=== PATIENT | male | born 1970 | race Caucasian/White ===

== ENCOUNTER → 2019-12-27 08:16 | Outpatient (CLI) | payer MEDICARE, OTHER, SELFPAY ==
--- NOTE | 2019-12-27 | DI.MRI.S_ITS ---
PROCEDURE: MR HEAD/BRAIN WO/W CON INDICATIONS: Disorientation, unspecified TECHNIQUE: Noncontrast axial T1 spin echo, axial T2 fast spin echo, sagittal and axial FLAIR, coronal T2 fast spin echo, axial gradient echo, axial diffusion and ADC through the brain. After the administration of contrast, axial and coronal T1 spin echo with fat saturation through the brain. COMPARISON: None. FINDINGS: Image quality: Excellent. CSF spaces: Basal cisterns are patent. No extra-axial fluid collections. Ventricles are normal in size and shape. Brain: No midline shift. No intracranial bleeds or masses. No abnormal intracranial enhancement. There is cerebral volume loss for age. There is periventricular white matter chronic small vessel ischemic change. The brainstem appears normal. Diffusion-weighted images demonstrate no acute ischemic insults. No chronic ischemic insults. Normal intravascular flow voids are present. Skull and face: Calvarial marrow is normal in signal. Orbits appear normal. Sinuses: Sinuses and mastoids appear clear. IMPRESSION: No evidence of acute ischemia. No acute intracranial signal abnormality or enhancement. Dictated by: Bernard Delgado M.D. on 12/27/2019 at 9:35 Approved by: Bernard Delgdao M.D. on 12/27/2019 at 9:41
== END ==
PROVIDERS: PCP Family Medicine; Referring Provider Family Medicine; Visit Provider Family Medicine
DX: R41.0 Disorientation, unspecified (principal)
CPT/HCPCS: 70553

== ENCOUNTER → 2022-02-11 13:00 | Outpatient (CLI) | payer MEDICARE, OTHER, SELFPAY ==
--- NOTE | 2022-02-11 13:04 | DI.US.S_ITS ---
PROCEDURE: US THYROID INDICATIONS: HYPOTHYROIDISM TECHNIQUE: Real-time scanning was performed of the thyroid gland, with image documentation. COMPARISON: Outside Film, CT, CT CHEST WITH CONTRAST, 05/01/2021, 12:26. FINDINGS: Right: Thyroid lobe measures 3.9 x 1 x 1.1 cm. Left: Thyroid lobe measures 3.8 x 1.4 x 1.3 cm. Isthmus: 4 mm thick. The thyroid is diffusely heterogeneous, without focal nodules. IMPRESSION: Normal sized thyroid, with diffuse heterogeneity. No focal thyroid nodules are seen. ACR TI-RADS definitions and recommendations: TI-RADS 1 (benign): 0 points. FNA not needed. TI-RADS 2 (not suspicious): 2 points. FNA not needed. TI-RADS 3 (mildly suspicious): 3 points. * FNA if 2.5 cm or larger, follow up if 1.5 cm or larger (at 1, 3, and 5 years). TI-RADS 4 (moderately suspicious): 4-6 points. * FNA if 1.5 cm or larger, follow up if 1 cm or larger (at 1, 2, 3, and 5 years). TI-RADS 5 (highly suspicious): 7 points or more. * FNA if 1 cm or larger, follow up if 0.5 cm or larger (every year for 5 years). Dictated by: Beck Gutiérrez M.D. on 02/11/2022 at 13:27 Approved by: Beck Gutiérrez M.D. on 02/11/2022 at 13:28
== END ==
PROVIDERS: PCP Family Medicine; Referring Provider Family Medicine; Visit Provider Family Medicine
DX: E03.9 Hypothyroidism, unspecified (principal)
CPT/HCPCS: 76536

== ENCOUNTER → 2022-05-27 10:29 | Outpatient (CLI) | payer MEDICARE, OTHER, SELFPAY ==
--- NOTE | 2022-05-27 | DI.CT.S_ITS ---
PROCEDURE: CT CHEST W CON INDICATIONS: Other diseases of mediastinum TECHNIQUE: After the administration of intravenous contrast, 5 mm thick sections acquired from the pulmonary apices to the posterior costophrenic angles. 1 mm axial lung, 5 mm thick coronal and sagittal reformats and 7 mm axial MIP were acquired. For radiation dose reduction, the following was used: automated exposure control, adjustment of mA and/or kV according to patient size. COMPARISON: Outside Film, CT, CT CHEST WITH CONTRAST, 05/01/2021, 12:26. Outside Film, CT, CT ABDOMEN PELVIS WITH CONTRAST, 04/15/2019, 10:27. [facility], RG, CT THORAX WITH CONTRAST, 05/01/2021, 12:26. FINDINGS: Image quality: Excellent. Lungs and pleura: No acute air space opacities. No pleural effusions or pneumothorax. Central and peripheral airways are patent and normal in caliber. Mediastinum: Heart size is normal. No pericardial effusion. 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 This cyst measured 3.9 x 6.[address] dated April 15, 2019. The superior aspect of the cyst tracks along the aortic root into the posterior upper right mediastinum, as before. No mediastinal or hilar adenopathy by size criteria. Thoracic aorta and central pulmonary arteries are normal in size. Esophagus is normal in caliber. There is a large hiatal hernia. Bones and chest wall: No suspicious bony lesions. No vertebral body compression fractures. No axillary or supraclavicular adenopathy by size criteria. Thyroid gland is unremarkable. An old compression deformity is redemonstrated at T12 unchanged from 2019. Abdomen: Visualized upper abdominal solid organs appear normal. Upper abdominal bowel loops are normal in caliber. IMPRESSION: 1. Right pericardial cyst slightly increased in size when compared with prior studies. No acute pulmonary findings. Dictated by: Erika Bloom M.D. on 06/08/2022 at 16:18 Approved by: Erika Bloom M.D. on 06/08/2022 at 16:23
== END ==
PROVIDERS: PCP Family Medicine; Referring Provider Thoracic Surgery (Cardiothoracic Vascular Surgery); Visit Provider Thoracic Surgery (Cardiothoracic Vascular Surgery)
DX: I31.8 Other specified diseases of pericardium (principal); J98.59 Other diseases of mediastinum, not elsewhere classified; K44.9 Diaphragmatic hernia without obstruction or gangrene
CPT/HCPCS: 71260

== ENCOUNTER 2022-08-17 12:54 | Inpatient (IN) | payer MEDICARE, OTHER, SELFPAY ==
[2022-08-17] VITALS (59 sets, daily range): BP systolic 113–187; BP diastolic 62–148; PULSE 92–137; RESP 10–46; TEMP 32–37.2; O2SAT 92–99; BMI 38.9
--- NOTE | 2022-08-17 | DI.ECHO.S_ITS ---
[facility]---------+ [facility] +---------+ : : [address] : : : : [id number] : : : : Phone: [phone]+ Echocardiogram Report + + :Name: NORBERTO CHRISTIANSEN Study Date: 08/17/2022 Height: 71 in : :[facility] ReadingLocation: Weight: 288 lb : : Gender: Male BSA: 2.5 m2 : :: 1970 Age: 51 yrs BP: 125/80 mmHg: :Reason For Study: ASSESS LV FUNCTION, PERICARDIAL EFFUSION : :Ordering Physician: CORINE SORIA : :Dodie Sanabria Performed By: Michaela Davenport : :Referring: CORINE SORIA D.O. : + + Interpretation Summary The left ventricle is normal in size. Left ventricular systolic function is normal. The ejection fraction is estimated to be 65-70%. There are no obvious focal wall motion abnormalities noted but poor endocardial definition reduces the sensitivity for the detection of such. Diastolic function could not be accurately assessed due to atrial fibrillation. The right ventricle is normal size. Right ventricular systolic function is at the lower limits of normal. Right ventricular systolic pressure is estimated to be 25 mmHg plus the clinically estimated CVP which cannot be estimated on this exam. The left atrial size is normal. Right atrial size is normal. There is no significant valvular heart disease. The aortic root is normal size. Procedure: A two-dimensional transthoracic echocardiogram with color flow and Doppler was performed. Most of the acoustic windows were suboptimal, but the best imaging was obtained from the apical window. There is no prior echocardiogram noted for this patient. A contrast injection of Definity was performed to improve assessment of LV function. The patient was in atrial fibrillation with heart rates between 99-125 bpm during the exam. Left Ventricle: The left ventricle is normal in size. Left ventricular wall thickness is mildly increased. Left ventricular systolic function is normal. The ejection fraction is estimated to be 65-70%. There are no obvious focal wall motion abnormalities noted but poor endocardial definition reduces the sensitivity for the detection of such. Diastolic function could not be accurately assessed due to atrial fibrillation. Right Ventricle: The right ventricle is normal size. Right ventricular systolic function is at the lower limits of normal. Atria: The left atrial size is normal. Right atrial size is normal. There is no Doppler evidence for an interatrial shunt. Mitral Valve: The mitral valve is normal in structure and function. There is trace mitral regurgitation. Aortic Valve: The aortic valve is slightly calcified. The aortic valve is not well visualized. There is no aortic valve stenosis. No aortic regurgitation is present. Tricuspid Valve: The tricuspid valve is not well visualized, but is grossly normal. There is mild tricuspid regurgitation. Right ventricular systolic pressure is estimated to be 25 mmHg plus the clinically estimated CVP which cannot be estimated on this exam. Pulmonic Valve: The pulmonic valve is not well visualized. There is no pulmonic valvular regurgitation. There is no significant valvular heart disease. Great Vessels: The aortic root is normal size. The dimensions of the ascending aorta are normal. Patient on Bipap with normal sized IVC without collapse. Pericardium/ Pleura There is no pericardial effusion. There is no pleural effusion. MMode/2D Measurements & Calculations LVIDd: 4.3 cm LVOT diam: 2.4 cm LVIDs: 2.8 cm Ao root diam: 3.2 cm FS: 34.1 % asc Aorta Diam: 3.1 cm IVSd: 1.2 cm Ao Arch Diam (Prox Trans): 2.7 cm LVPWd: 1.4 cm LV mcmanus. diameter/BSA (cm/m^2): 1.8 LV sys. diameter/BSA (cm/m^2): 1.2 LA A2 area: 18.7 cm2 RA long axis: 5.1 cm LA A4 area: 23.5 cm2 RA area: 17.6 cm2 LA length (vol): 7.0 cm RA vol: 51.6 ml LA vol: 53.0 ml RA : 21.0 ml/m2 LA vol index: 21.5 ml/m2 IVC diam: 1.7 cm RVD1 (basal): 3.7 cm RVD2 (mid): 2.7 cm TAPSE: 1.5 cm Doppler Measurements & Calculations Ao V2 max: 148.3 cm/sec LVOT Max Robbie: 144.6 cm/sec Ao V2 mean: 103.1 cm/sec LV V1 max P.4 mmHg Ao max P.9 mmHg LV V1 VTI: 20.9 cm Ao mean P.9 mmHg VALERIA(I,D): 3.9 cm2 Ao V2 VTI: 23.5 cm VALERIA(V,D): 4.3 cm2 sev ratio: 0.89 VALERIA indexed to BSA (cm^2/m^2): 1.6 MV E max robbie: 72.9 cm/sec TR max robbie: 252.0 cm/sec MV A max robbie: 1.0 cm/sec TR max P.4 mmHg MV E/A: 70.5 PA pr(Accel): 37.9 mmHg Med Peak E' Robbie: 5.0 cm/sec E/E' med: 14.6 Lat Peak E' Robbie: 7.9 cm/sec E/E' lat: 9.2 E/e' average: 11.9 MV dec time: 0.15 sec SV(LVOT): 92.3 ml Reading Physician:05:49 PM
--- NOTE | 2022-08-17 12:58 | DI.RAD.S_ITS ---
PROCEDURE: XR CHEST 1V INDICATIONS: chest pain TECHNIQUE: One view of the chest was acquired. COMPARISON: [facility], CR, XR CHEST 2 VIEWS, 08/11/2022, 13:43. FINDINGS: Surgical changes and devices: None. Lungs and pleura: Moderate right basilar patchy airspace opacity. No pleural effusions or pneumothorax. Mediastinum: Mediastinal contours appear normal. Heart size is normal. Bones and chest wall: No suspicious bony lesions. Overlying soft tissues appear unremarkable. IMPRESSION: Right basilar atelectasis versus pneumonia Dictated by: Chaparrita Martinez M.D. on 08/17/2022 at 13:24 Approved by: Chaparrita Martinez M.D. on 08/17/2022 at 13:24
--- NOTE | 2022-08-17 13:06 | ED.SOB ---
HPI - SOB/Dyspnea General Chief Complaint: Chest Pain Stated Complaint: SOB, new afib, s/p pericardial cyst removal 08/12 Time Seen by Provider: 08/17/22 13:00 History of Present Illness HPI Narrative: Patient is a 51-year-old male history of mediastinal/large pericardial cyst removed on 08/08/2022 at [facility]. Also history includes hyperlipidemia, morbid obesity, ice sleep apnea. Presents today with increasing shortness of breath. He is found to be in AFib with RVR along with tachypneic and moderate respiratory distress unable to provide significant history. He denies any fever or chills. He is having some chest discomfort as well. Related Data Home Medications Medication Instructions Recorded Confirmed Saccharomyces boulardii 250 mg 250 mg PO TID 08/17/22 08/17/22 capsule aspirin 81 mg capsule 81 mg PO DAILY 08/17/22 08/17/22 calcium citrate 200 mg (950 mg) 200 mg PO DAILY 08/17/22 08/17/22 tablet digestive enzymes 1 tab PO DAILY 08/17/22 08/17/22 diphenoxylate-atropine 2.5 1 tab PO TID 08/17/22 08/17/22 mg-0.025 mg tablet (Lomotil) esomeprazole magnesium 40 mg 40 mg PO DAILY 08/17/22 08/17/22 capsule,delayed release (Nexium) gabapentin 100 mg capsule 100 mg PO TID 08/17/22 08/17/22 glutamine 500 mg capsule 500 mg PO QID PRN Pain (Scale 08/17/22 08/17/22 Score 1-3) levothyroxine 125 mcg tablet 125 mcg PO DAILY 08/17/22 08/17/22 (Synthroid) loratadine 10 mg disintegrating 10 mg PO DAILY PRN Allergy Symptoms 08/17/22 08/17/22 tablet (Allergy Relief (loratadine)) metoprolol succinate 50 mg 50 mg PO BID 08/17/22 08/17/22 tablet,extended release 24 hr omeprazole 40 mg capsule,delayed 40 mg PO DAILY 08/17/22 08/17/22 release fylqtxnzshvt-otserkckshzit-sriuetf 5 ml PO Q4-6H PRN Pain (Scale 08/17/22 08/17/22 6.25 mg-5 mg-10 mg/5 mL oral syrup Score 1-3) (Promethazine VC-Codeine) rosuvastatin 20 mg tablet (Crestor) 20 mg PO DAILY 08/17/22 rosuvastatin 40 mg tablet 40 mg PO DAILY 08/17/22 08/17/22 tramadol 50 mg tablet 50 mg PO BID PRN Pain (Scale Score 08/17/22 08/17/22 1-3) Allergies Allergy/AdvReac Type Severity Reaction Status Date / Time lorazepam [From Ativan] Allergy Severe Anaphylaxis Verified 08/17/22 15:14 morphine Allergy Severe Anaphylaxis Verified 08/17/22 15:14 Review of Systems Review of Systems Narrative: GENERAL: Denies chills, fatigue, malaise, fever, sweats, travel HEENT: Denies sinus pain, ear pain, sore throat, difficulty swallowing, neck pain RESPIRATORY: See HPI CARDIOVASCULAR: Denies chest pain, palpitations, orthopnea, edema GASTROINTESTINAL: Denies nausea, vomiting, abdominal pain, diarrhea, constipation, melena. : Denies dysuria, frequency, incontinence, hematuria, urinary retention, flank pain. MUSCULOSKELETAL: Denies weakness, joint pain, or bony pain SKIN: No rash, no erythema, no pruritus NEUROLOGIC: Denies weakness, dizziness, headache, numbness, change in speech, confusion PSYCHIATRIC: No concerning psychosocial issues. 12 point review of systems is negative except for those stated above and HPI Exam Initial Vital Signs Initial Vital Signs: Vital Signs Pulse Rate 114 H 08/17/22 12:59 Respiratory Rate 29 H 08/17/22 12:59 Pulse Oximetry 98 08/17/22 12:59 GENERAL: Alert 51-year-old male appears in moderate to severe respiratory distress HEENT: Head atraumatic,EOMI, pupils reactive, face symmetric, [moist] mucous membranes CARDIOVASCULAR: Irregular tachycardic no murmurs or rubs appreciated. RESPIRATORY: Breath sounds equal bilaterally, no wheezes rales or rhonchi. ABDOMEN: Soft, nontender. Normoactive bowel sounds all 4 quadrants. No guarding or rebound. EXTREMITIES: Normal range of motion, no clubbing or edema. Neurovascularly intact NEUROLOGICAL: Alert and oriented x4. Moving all extremities SKIN: Mottled skin appearance on abdomen but no other extremities Course Orders Ordered: ED Orders 08/17/22 12:58 XR chest 1V Stat EKG-12 Lead Stat 08/17/22 13:00 BNP [NT-proBNP (BNP-Adult 18+)] Stat COVID19 -Nasal RAPID/Pre-Proc Stat Complete Blood Count AUTO DIFF Stat Comprehensive Metabolic Panel Stat Lactate (Lactic Acid) Stat Lipase Stat Magnesium Stat Troponin & CK Cardiac Panel Stat 08/17/22 13:13 CT angio chest abdomen pelvis Stat 08/17/22 13:18 Urinalysis and Microscopic Stat Acetaminophen (Acetaminophen 325 Mg Tablet) 650 mg PO Q6H PRN PRN Reason: Fever/Mild Pain (1-3) Aspirin (Aspirin Ec 81 Mg Tablet) 81 mg PO DAILY LESLY Chlorthalidone (Chlorthalidone 25 Mg Tablet) 25 mg PO DAILY LESLY Enoxaparin Sodium (Enoxaparin 40 Mg/0.4 Ml Syringe) 40 mg SUBCUT DAILY LESLY Furosemide (Furosemide 40 Mg/4 Ml Vial) 40 mg IV DAILY LESLY Gabapentin (Gabapentin 100 Mg Capsule) 100 mg PO TID LESLY DILTIAZEM (Diltiazem 125 Mg/125 Ml-D5w) 125 mg in 125 mls @ 5 mls/hr IV TITRATE LESLY; Protocol Last Admin: 08/17/22 16:24 Dose: 10 mg/hr, 10 mls/hr Documented By: MAYA Levothyroxine Sodium (Levothyroxine 125 Mcg Tablet) 125 mcg PO DAILY@0600 [facility] Melatonin (Melatonin 3 Mg Tablet) 6 mg PO BEDTIME PRN PRN Reason: Insomnia Naloxone HCl (Naloxone 0.4 Mg/Ml Vial) 0.2 mg IV Q2MIN PRN PRN Reason: Opiate Reversal Pantoprazole Sodium (Pantoprazole Dr 40 Mg Tablet) 40 mg PO 0700 [facility] Polyethylene Glycol (Polyethylene Glycol 3350 17 Gm Powd.Pack) 17 gm PO DAILY PRN PRN Reason: Constipation Sennosides (Sennosides 8.6 Mg Tablet) 8.6 mg PO BID PRN PRN Reason: Constipation Tramadol HCl (Tramadol 50 Mg Tablet) 100 mg PO DAILY PRN PRN Reason: Pain, Moderate (4-6) Discontinued Medications Diltiazem HCl (Diltiazem 5 Mg/Ml Sdv) 10 mg IV NOW ONE Stop: 08/17/22 14:19 Last Admin: 08/17/22 14:27 Dose: 10 mg Documented By: HA Furosemide (Furosemide 40 Mg/4 Ml Vial) 40 mg IV NOW ONE Stop: 08/17/22 13:01 Last Admin: 08/17/22 13:12 Dose: 40 mg Documented By: RB Vital Signs Vital signs: Vital Signs - 8 hr 08/17/22 13:20 08/17/22 12:59 08/17/22 13:00 Temperature 98.9 F Pulse Rate 120 H 114 H 118 H Respiratory Rate 30 H 29 H 40 H Blood Pressure 165/98 H Pulse Oximetry 95 98 95 Oxygen Delivery Method Room Air Fraction of Inspired Oxygen 08/17/22 13:01 08/17/22 13:01 08/17/22 13:05 Temperature Pulse Rate 120 H Respiratory Rate 34 H Blood Pressure 165/98 H 176/88 H Pulse Oximetry 93 Oxygen Delivery Method Fraction of Inspired Oxygen 08/17/22 13:05 08/17/22 13:10 08/17/22 13:10 Temperature Pulse Rate 126 H 130 H Respiratory Rate 39 H 39 H Blood Pressure 158/99 H Pulse Oximetry 95 96 Oxygen Delivery Method Fraction of Inspired Oxygen 08/17/22 13:15 08/17/22 13:16 08/17/22 13:16 Temperature Pulse Rate 137 H 119 H Respiratory Rate 37 H 29 H Blood Pressure 174/148 H Pulse Oximetry 96 95 Oxygen Delivery Method Fraction of Inspired Oxygen 08/17/22 13:20 08/17/22 13:20 08/17/22 13:25 Temperature Pulse Rate 119 H 120 H Respiratory Rate 33 H 36 H Blood Pressure 187/143 H Pulse Oximetry 95 95 Oxygen Delivery Method Fraction of Inspired Oxygen 08/17/22 13:26 08/17/22 13:26 08/17/22 13:30 Temperature Pulse Rate 121 H Respiratory Rate 31 H Blood Pressure 166/78 H 173/88 H Pulse Oximetry 95 Oxygen Delivery Method Fraction of Inspired Oxygen 08/17/22 13:30 08/17/22 13:34 08/17/22 13:34 Temperature Pulse Rate 123 H 122 H Respiratory Rate 33 H 42 H Blood Pressure 162/91 H Pulse Oximetry 95 97 Oxygen Delivery Method Fraction of Inspired Oxygen 08/17/22 13:35 08/17/22 13:35 08/17/22 13:40 Temperature Pulse Rate 120 H Respiratory Rate 46 H Blood Pressure 160/67 H 166/78 H Pulse Oximetry 97 Oxygen Delivery Method Fraction of Inspired Oxygen 08/17/22 13:40 08/17/22 13:43 08/17/22 13:43 Temperature Pulse Rate 123 H 126 H Respiratory Rate 35 H 26 H Blood Pressure 169/96 H Pulse Oximetry 96 95 Oxygen Delivery Method Fraction of Inspired Oxygen 08/17/22 13:45 08/17/22 13:45 08/17/22 13:50 Temperature Pulse Rate 122 H Respiratory Rate 35 H Blood Pressure 147/72 H 163/75 H Pulse Oximetry 96 Oxygen Delivery Method Fraction of Inspired Oxygen 08/17/22 13:50 08/17/22 13:55 08/17/22 13:55 Temperature Pulse Rate 121 H 120 H Respiratory Rate 33 H 27 H Blood Pressure 156/70 H Pulse Oximetry 95 95 Oxygen Delivery Method Fraction of Inspired Oxygen 08/17/22 14:00 08/17/22 14:00 08/17/22 14:10 Temperature Pulse Rate 118 H Respiratory Rate 41 H Blood Pressure 125/68 153/89 H Pulse Oximetry 94 Oxygen Delivery Method Fraction of Inspired Oxygen 35 08/17/22 14:27 08/17/22 14:05 08/17/22 14:05 Temperature Pulse Rate 135 H 118 H Respiratory Rate 38 H Blood Pressure 125/91 H 122/81 Pulse Oximetry 96 Oxygen Delivery Method Fraction of Inspired Oxygen 08/17/22 14:10 08/17/22 14:10 08/17/22 14:15 Temperature Pulse Rate 117 H 130 H Respiratory Rate 32 H 25 H Blood Pressure 153/89 H Pulse Oximetry 96 97 Oxygen Delivery Method BiPAP Fraction of Inspired Oxygen 08/17/22 14:20 08/17/22 14:20 08/17/22 14:25 Temperature Pulse Rate 125 H Respiratory Rate 26 H Blood Pressure 136/77 125/91 H Pulse Oximetry 96 Oxygen Delivery Method Fraction of Inspired Oxygen 08/17/22 14:25 08/17/22 14:30 08/17/22 14:30 Temperature Pulse Rate 121 H 132 H Respiratory Rate 24 24 Blood Pressure 121/78 Pulse Oximetry 97 96 Oxygen Delivery Method Fraction of Inspired Oxygen 08/17/22 14:35 08/17/22 14:35 08/17/22 14:40 Temperature Pulse Rate 106 H Respiratory Rate 28 H Blood Pressure 127/80 114/86 Pulse Oximetry 95 Oxygen Delivery Method Fraction of Inspired Oxygen 08/17/22 14:40 08/17/22 14:45 08/17/22 14:45 Temperature Pulse Rate 105 H 102 H Respiratory Rate 24 25 H Blood Pressure 116/83 Pulse Oximetry 94 94 Oxygen Delivery Method Fraction of Inspired Oxygen 08/17/22 14:50 08/17/22 14:50 08/17/22 14:55 Temperature Pulse Rate 102 H Respiratory Rate 25 H Blood Pressure 113/86 116/78 Pulse Oximetry 95 Oxygen Delivery Method Fraction of Inspired Oxygen 08/17/22 14:55 08/17/22 15:00 08/17/22 15:00 Temperature Pulse Rate 103 H 105 H Respiratory Rate 24 22 Blood Pressure 125/83 Pulse Oximetry 95 96 Oxygen Delivery Method Fraction of Inspired Oxygen 08/17/22 15:05 08/17/22 15:05 08/17/22 15:10 Temperature Pulse Rate 102 H Respiratory Rate 24 Blood Pressure 122/74 119/75 Pulse Oximetry 96 Oxygen Delivery Method Fraction of Inspired Oxygen 08/17/22 15:10 08/17/22 15:15 08/17/22 15:15 Temperature Pulse Rate 111 H 116 H Respiratory Rate 23 24 Blood Pressure 130/75 Pulse Oximetry 96 95 Oxygen Delivery Method BiPAP Fraction of Inspired Oxygen 08/17/22 15:20 08/17/22 15:20 08/17/22 15:25 Temperature Pulse Rate 108 H Respiratory Rate 23 Blood Pressure 129/80 133/62 Pulse Oximetry 96 Oxygen Delivery Method Fraction of Inspired Oxygen 08/17/22 15:25 08/17/22 15:30 08/17/22 15:30 Temperature Pulse Rate 107 H 113 H Respiratory Rate 23 23 Blood Pressure 119/72 Pulse Oximetry 96 96 Oxygen Delivery Method Fraction of Inspired Oxygen MDM - SOB/Dyspnea Lab Data Result diagrams: 08/17/22 13:00 08/17/22 13:00 Labs: Lab Results 08/17/22 08/17/22 08/17/22 Range/Units 13:00 13:00 13:00 WBC 13.8 H (4.5-11.0) X10^3/uL RBC 5.54 (4.5-5.9) X10^6/uL Hgb 16.2 (13.5-17.5) g/dL Hct 47.1 (41-53) % MCV 85.0 (80-100) fL MCH 29.2 (26-34) PG MCHC 34.3 (30-36) % RDW 15.7 H (11.6-14.8) % Plt Count 305 (150-400) X10^3/uL Neut % (Auto) 69.6 (50-75) % Lymph % (Auto) 12.4 L (25-40) % F[place]ardo % (Auto) 12.7 (3-14) % Eos % (Auto) 4.9 H (2-4) % Baso % (Auto) 0.4 (0-2) % Neut # (Auto) 9600 H (7749-5586) /uL Lymph # (Auto) 1700 (0875-2142) /uL [place]ardo # (Auto) 1800 H (0-900) /uL Eos # (Auto) 700 H (0-450) /uL Baso # (Auto) 100 (0-100) /uL Sodium 139 (137-145) mmol/L Potassium 4.8 (3.4-5.1) mmol/L Chloride 104 (98-107) mmol/L Carbon Dioxide 28 (22-32) mmol/L BUN 16 (9-20) mg/dL Creatinine 1.05 (0.66-1.25) mg/dL Estimated GFR > 60 (>60) mL/min BUN/Creatinine Ratio 15.2 (6-22) Glucose 47 L (70-100) mg/dL Lactate (0.7-2.1) mmol/L Calcium 9.5 (8.4-10.2) mg/dL Magnesium 2.1 (1.6-2.3) mg/dL Total Bilirubin 0.4 (0.2-1.3) mg/dL AST 27 (17-59) IU/L ALT 39 (<50) IU/L Alkaline Phosphatase 87 (38-126) U/L Total Creatine Kinase 50 L (55-170) U/L CK-MB (CK-2) TNP CK-MB (CK-2) Rel Index TNP Troponin I < 0.012 (0.01-0.034) ng/mL NT-Pro-B Natriuret Pep 948 H (<125) pg/mL Total Protein 7.4 (6.3-8.2) g/dL Albumin 3.9 (3.5-5.0) g/dL Globulin 3.5 (1.7-4.1) g/dL Albumin/Globulin Ratio 1.1 (1.0-2.8) Lipase 179 (23-300) U/L Urine Color Urine Appearance Urine pH (4.5-8.0) Ur Specific [place] (1.000-1.035) Urine Protein (Negative) Urine Glucose (UA) (Negative) g/dL Urine Ketones (NEGATIVE) Urine Occult Blood (Negative) Urine Nitrate (Negative) Urine Bilirubin (NEGATIVE) Urine Urobilinogen (0.2) E.U./dL Ur Leukocyte Esterase (NEGATIVE) Urine RBC (0-5/HPF) Urine WBC (0-5/HPF) Urine Bacteria (None) Ur Culture Indicated? Micro UA Comment SARS-CoV-2 (PCR) (Negative) 08/17/22 08/17/22 08/17/22 Range/Units 13:00 13:00 13:18 WBC (4.5-11.0) X10^3/uL RBC (4.5-5.9) X10^6/uL Hgb (13.5-17.5) g/dL Hct (41-53) % MCV (80-100) fL MCH (26-34) PG MCHC (30-36) % RDW (11.6-14.8) % Plt Count (150-400) X10^3/uL Neut % (Auto) (50-75) % Lymph % (Auto) (25-40) % [place] % (Auto) (3-14) % Eos % (Auto) (2-4) % Baso % (Auto) (0-2) % Neut # (Auto) (2809-4046) /uL Lymph # (Auto) (2238-4174) /uL [place]ardo # (Auto) (0-900) /uL Eos # (Auto) (0-450) /uL Baso # (Auto) (0-100) /uL Sodium (137-145) mmol/L Potassium (3.4-5.1) mmol/L Chloride (98-107) mmol/L Carbon Dioxide (22-32) mmol/L BUN (9-20) mg/dL Creatinine (0.66-1.25) mg/dL Estimated GFR (>60) mL/min BUN/Creatinine Ratio (6-22) Glucose (70-100) mg/dL Lactate 1.2 (0.7-2.1) mmol/L Calcium (8.4-10.2) mg/dL Magnesium (1.6-2.3) mg/dL Total Bilirubin (0.2-1.3) mg/dL AST (17-59) IU/L ALT (<50) IU/L Alkaline Phosphatase (38-126) U/L Total Creatine Kinase (55-170) U/L CK-MB (CK-2) CK-MB (CK-2) Rel Index Troponin I (0.01-0.034) ng/mL NT-Pro-B Natriuret Pep (<125) pg/mL Total Protein (6.3-8.2) g/dL Albumin (3.5-5.0) g/dL Globulin (1.7-4.1) g/dL Albumin/Globulin Ratio (1.0-2.8) Lipase (23-300) U/L Urine Color Yellow Urine Appearance Clear Urine pH 7.5 (4.5-8.0) Ur Specific [place] 1.010 (1.000-1.035) Urine Protein Negative (Negative) Urine Glucose (UA) Negative (Negative) g/dL Urine Ketones Negative (NEGATIVE) Urine Occult Blood Negative (Negative) Urine Nitrate Negative (Negative) Urine Bilirubin Negative (NEGATIVE) Urine Urobilinogen 0.2 (0.2) E.U./dL Ur Leukocyte Esterase Negative (NEGATIVE) Urine RBC None seen (0-5/HPF) Urine WBC None seen (0-5/HPF) Urine Bacteria None seen (None) Ur Culture Indicated? Cult not indicated Micro UA Comment Microscopic normal SARS-CoV-2 (PCR) Negative (Negative) Point of Care Testing Glucose POC 85 Imaging Data Chest x-ray: Radiologist's Impression: [address] [address] XRay Report Signed Patient: Salvador Rodriguez MR#: [id number] : 1970 Acct:[id number] Age/Sex: 51 / M Date of Service: 08/17/22 Loc: ED Accession Number: [id number] ?? Procedure: XR chest 1V Ordering Provider: Yumiko Black D.O. PROCEDURE:? XR CHEST 1V ? INDICATIONS:? chest pain ? TECHNIQUE:? One view of the chest was acquired.? ? COMPARISON:? [facility], , XR CHEST 2 VIEWS, 08/11/2022, 13:43. ? FINDINGS:? ? Surgical changes and devices:? None.? ? Lungs and pleura:? Moderate right basilar patchy airspace opacity.? No pleural effusions or pneumothorax.? ? Mediastinum:? Mediastinal contours appear normal.? Heart size is normal.? ? Bones and chest wall:? No suspicious bony lesions.? Overlying soft tissues appear unremarkable.? ? IMPRESSION:? Right basilar atelectasis versus pneumonia ? ? Dictated by: Chaparrita Martinez M.D. on 08/17/2022 at 13:24 ?? CT scan - chest: Radiologist's Impression: Signed Patient: Salvador Rodriguez MR#: [id number] : 1970 Acct:[id number] Age/Sex: 51 / M Date of Service: 08/17/22 Loc: ED Accession Number: [id number] ?? Procedure: CT angio chest abdomen pelvis Ordering Provider: Yumiko Black D.O. PROCEDURE:? CT ANGIO CHEST ABDOMEN PELVIS ? INDICATIONS:? sob s/p pericaridal cyst, abdominal pain ? TECHNIQUE:? Precontrast 5 mm thick sections acquired from the lung apices to the iliac crests.? After the administration of intravenous contrast, 2.5 mm thick sections again acquired from the lung apices to the iliac crests.? Maximum intensity projection (MIP) oblique sagittal and coronal reformats were then acquired.? For radiation dose reduction, the following was used:? automated exposure control.? ? COMPARISON:? [facility], , CT THORAX WITH CONTRAST, 05/01/2021, 12:26. ? FINDINGS:? Image quality:? Excellent.? ? AORTA and its attachments:? Thoracic and abdominal aorta are of normal caliber without dissection.? Bovine arch anatomy.? Great vessel origins are widely patent.? SMA, celiac, YOU, and bilateral renal arteries are widely patent.? Iliacs and common femorals are widely patent. ? Pulmonary arteries:? No acute pulmonary emboli identified. ? CHEST:? Lungs and pleura:? No acute airspace opacities.? Development right basilar atelectasis with elevation of the right hemidiaphragm.? Central and peripheral airways are patent and normal in caliber.? ? Mediastinum:? Heart size is normal.? No pericardial effusion.? No mediastinal or hilar adenopathy by size criteria.? Mediastinal lipomatosis.? Central pulmonary arteries are normal in size.? Esophagus is normal in caliber.? Moderate hiatal hernia. ? Bones and chest wall:? No axillary adenopathy by size criteria.? Thyroid gland is unremarkable as visualized .? No suspicious bony lesions.? No vertebral body compression fractures.? ? ? ABDOMEN:? Vasculature:? Celiac trunk and mesenteric arteries are patent.? Renal arteries are also patent.? ? Solid organs:? Liver is normal in size and enhancement.? Gallbladder is surgically absent .? Biliary system is non dilated.? Pancreas enhances normally.? Spleen is normal in size and enhancement.? No adrenal nodules.? Both kidneys are normal in size and enhancement, without hydronephrosis.? ? Peritoneum and bowel:? No free fluid or air.? Bowel loops are normal in caliber and wall thickness.? ? Nodes and vessels:? No retroperitoneal or mesenteric adenopathy by size criteria.? Inferior vena cava is normal in morphology.? ? Miscellaneous:? Tiny fat containing umbilical hernia. ? ? PELVIS:? Genitourinary:? Bladder wall thickness is normal.? Uterus is surgically absent. ? Miscellaneous:? Small fat containing left inguinal hernia.? No inguinal adenopathy.? No ventral hernias.? ? Bones:? No suspicious bony lesions.? Old severe T12 compression.? Old L5 compression. ? ? IMPRESSION:? ? 1. Development of right basilar atelectasis with elevation of the right hemidiaphragm. ? 2. Unremarkable thoracic and abdominal aorta and its attachments. ? 3. Moderate hiatal hernia.? ? 4. Presumed osteoporotic compression fractures. ? Comment:? Consider DEXA bone densitometry study on a nonemergent basis. ? Dictated by: Patrice Díaz M.D. on 08/17/2022 at 13:48 ? ? Approved by: Patrice Díaz M.D. on 08/17/2022 at 13:56 ? ECG Data Interpretation: Atrial fibrillation rate 98 right bundle-branch block no ST changes no priors to compare MDM Narrative Medical decision making narrative: Initial concern for possible cardiac tamponade and pericardial effusion with recent procedure. EKG was closely reviewed does not appear to have electric all trans but is in AFib. Bedside ultrasound done by myself does not clearly show pericardial sac slightly due to body habitus and respiratory distress. He was stabilized with high-flow oxygen and Lasix will he went to CT. CT angio did not show any pulmonary embolism or pericardial effusion. He is given Cardizem to help with his rate. Surprisingly blood work is overall reassuring. Records from [facility] have been reviewed. Cardiology Dr. Amy peres was consulted from the emergency department who was not convinced he had a procedure at [facility] although records did show that he did. Dr. Cabrera consulted and kindly accepted patient. Critical Care Time Critical Care Time Critical Care Time: Yes Total Critical Care Time: 30 Attestation: The high probability of a clinically significant, sudden or life threatening deterioration of the [cardiovascular] system(s) required my full and direct attention, intervention and personal management. The aggregate critical care time was 30 minutes. This time is in addition to time spent performing reported procedures but includes the following: [x] Data Review and interpretation [x] Patient assessment and monitoring of vital signs [x] Documentation [x] Medication orders and management Discharge Plan Departure Patient Disposition: Admitted As Inpatient Admit Date/Time: 08/17/22 15:32 Admit Provider: Leon Cabrera
[2022-08-17] MEDS: FUROSEMIDE 40 MG/4 ML VIAL IV (13:12)
--- NOTE | 2022-08-17 13:13 | DI.CT.S_ITS ---
PROCEDURE: CT ANGIO CHEST ABDOMEN PELVIS INDICATIONS: sob s/p pericaridal cyst, abdominal pain TECHNIQUE: Precontrast 5 mm thick sections acquired from the lung apices to the iliac crests. After the administration of intravenous contrast, 2.5 mm thick sections again acquired from the lung apices to the iliac crests. Maximum intensity projection (MIP) oblique sagittal and coronal reformats were then acquired. For radiation dose reduction, the following was used: automated exposure control. COMPARISON: [facility], , CT THORAX WITH CONTRAST, 05/01/2021, 12:26. FINDINGS: Image quality: Excellent. AORTA and its attachments: Thoracic and abdominal aorta are of normal caliber without dissection. Bovine arch anatomy. Great vessel origins are widely patent. SMA, celiac, YOU, and bilateral renal arteries are widely patent. Iliacs and common femorals are widely patent. Pulmonary arteries: No acute pulmonary emboli identified. CHEST: Lungs and pleura: No acute airspace opacities. Development right basilar atelectasis with elevation of the right hemidiaphragm. Central and peripheral airways are patent and normal in caliber. Mediastinum: Heart size is normal. No pericardial effusion. No mediastinal or hilar adenopathy by size criteria. Mediastinal lipomatosis. Central pulmonary arteries are normal in size. Esophagus is normal in caliber. Moderate hiatal hernia. Bones and chest wall: No axillary adenopathy by size criteria. Thyroid gland is unremarkable as visualized . No suspicious bony lesions. No vertebral body compression fractures. ABDOMEN: Vasculature: Celiac trunk and mesenteric arteries are patent. Renal arteries are also patent. Solid organs: Liver is normal in size and enhancement. Gallbladder is surgically absent . Biliary system is non dilated. Pancreas enhances normally. Spleen is normal in size and enhancement. No adrenal nodules. Both kidneys are normal in size and enhancement, without hydronephrosis. Peritoneum and bowel: No free fluid or air. Bowel loops are normal in caliber and wall thickness. Nodes and vessels: No retroperitoneal or mesenteric adenopathy by size criteria. Inferior vena cava is normal in morphology. Miscellaneous: Tiny fat containing umbilical hernia. PELVIS: Genitourinary: Bladder wall thickness is normal. Uterus is surgically absent. Miscellaneous: Small fat containing left inguinal hernia. No inguinal adenopathy. No ventral hernias. Bones: No suspicious bony lesions. Old severe T12 compression. Old L5 compression. IMPRESSION: 1. Development of right basilar atelectasis with elevation of the right hemidiaphragm. 2. Unremarkable thoracic and abdominal aorta and its attachments. 3. Moderate hiatal hernia. 4. Presumed osteoporotic compression fractures. Comment: Consider DEXA bone densitometry study on a nonemergent basis. Dictated by: Patrice Díaz M.D. on 08/17/2022 at 13:48 Approved by: Patrice Díaz M.D. on 08/17/2022 at 13:56
[2022-08-17 13:20] LABS: Add Manual Diff / Slide Review NO; Basophils Absolute Auto 100 /uL (0-100); Basophils Percent Auto 0.4 % (0-2); Eosinophils Absolute Auto 700 /uL (0-450); Eosinophils Percent Auto 4.9 % (2-4); Hematocrit 47.1 % (41-53); Hemoglobin 16.2 g/dL (13.5-17.5); Lymphocytes Absolute Auto 1700 /uL (1100-4500); Lymphocytes Percent Auto 12.4 % (25-40); Mean Corpuscular HGB Conc 34.3 % (30-36); Mean Corpuscular Hemoglobin 29.2 PG (26-34); Monocytes Absolute Auto 1800 /uL (0-900); Monocytes Percent Auto 12.7 % (3-14); Neutrophils Absolute Auto 9600 /uL (1500-7000); Neutrophils Percent Auto 69.6 % (50-75); Platelet Count 305 X10^3/uL (150-400); Red Blood Cell Count 5.54 X10^6/uL (4.5-5.9); Red Cell Distribution Width 15.7 % (11.6-14.8); White Blood Cell Count 13.8 X10^3/uL (4.5-11.0)
[2022-08-17 13:37] LABS: Alanine Aminotransferase 39 IU/L (<50); Albumin 3.9 g/dL (3.5-5.0); Albumin Globulin Ratio 1.1 (1.0-2.8); Alkaline Phosphatase 87 U/L (38-126); Aspartate Aminotransferase 27 IU/L (17-59); BUN Creatinine Ratio 15.2 (6-22); Bilirubin Total 0.4 mg/dL (0.2-1.3); Blood Urea Nitrogen 16 mg/dL (9-20); Calcium 9.5 mg/dL (8.4-10.2); Carbon Dioxide 28 mmol/L (22-32); Chloride 104 mmol/L (98-107); Creatine Kinase 50 U/L (55-170); Estimated Glomerular Filt Rate > 60 mL/min (>60); Globulin 3.5 g/dL (1.7-4.1); Glucose 47 mg/dL (70-100); HEMOLYSIS < 15 (0-50); Lipase 179 U/L (23-300); Magnesium 2.1 mg/dL (1.6-2.3); Potassium 4.8 mmol/L (3.4-5.1); Sodium 139 mmol/L (137-145); Total Protein 7.4 g/dL (6.3-8.2)
[2022-08-17 13:39] LABS: Lactate (Lactic Acid) 1.2 mmol/L (0.7-2.1)
[2022-08-17 13:45] LABS: NT-proBNP (BNP-Adult 18+) 948 pg/mL (<125)
--- NOTE | 2022-08-17 13:47 | PC.NURSE ---
CXR obtained and pt appears to have fluid overload on image. Lasix 40mg given IVP per DEC. Pt placed on HHFNC 40% 50L in order to be laid supine in CT. RN with pt to CT. Pt tolerated well. Resting in bed AAOx3, RT in room to place pt on BiPap at this time. Pt states he uses CPAP every night at home for DAKOTAH. 95% on HHFNC HR improving to 112-126 afib.
[2022-08-17 13:48] LABS: Troponin I < 0.012 ng/mL (0.01-0.034)
[2022-08-17 13:56] LABS: Appearance Urine UA CLEAR; Bilirubin Urine UA NEGATIVE (NEGATIVE); Color Urine UA YELLOW; Glucose Urine UA NEGATIVE (Negative); Ketones Urine UA NEGATIVE (NEGATIVE); Leukocyte Esterase Urine UA NEGATIVE (NEGATIVE); Nitrite Urine UA NEGATIVE (Negative); Occult Blood Urine UA NEGATIVE (Negative); Protein Urine UA NEGATIVE (Negative); Urobilinogen Urine UA 0.2 E.U./dL (0.2); pH Urine UA 7.5 (4.5-8.0)
[2022-08-17 14:09] LABS: Bacteria Urine None Seen; Culture Indicated Urine Cult Not Indicated; RBC Urine None Seen (0-5/HPF); Urine Comments Microscopic Normal; WBC Urine None Seen (0-5/HPF)
[2022-08-17 14:24] LABS: COVID19 -Nasal RAPID Negative (Negative)
[2022-08-17] MEDS: dilTIAZem 5 MG/ML SDV 10 MG IV (14:27)
--- NOTE | 2022-08-17 14:34 | PC.NURSE ---
Pt placed on bipap and tolerating well. Pt in good spirits and making jokes with staff. Cardizem given per order. BP 121/78. HR improved to 100-110 however remains in afib.
--- NOTE | 2022-08-17 15:55 | P.HP_ITS ---
History of Present Illness History of Present Illness Date Patient Seen: 08/17/22 Time Patient Seen: 18:50 Chief complaint: SOB, new afib, s/p pericardial cyst removal 08/12 Narrative: Jose Rodriguez is a 51 yo M with PMH of recent large pericardial cyst removal on at [facility], legal blindness, DAKOTAH on CPAP, HTN, HLD, morbid obesity, hypothyroidism and GERD who presents with dyspnea, orthopnea and found to be in A-fib RVR. Patient states ever since he was discharged from [facility] on 08/12 he has had exertional shortness of breath, fatigue and chest tightness. He states he also had a pain in his right shoulder which would keep him up at night. Hugging his small dog would also exacerbate the chest pain. He also had trouble lying flat and notes increased swelling of LE's for which he wears compression stockings. Patient then came to the ED where he was in mild respiratory distress so BiPAP was placed with good effect. Patient states he is breathing much easier now with it. Patient received push of IV Dilt for his AFib. Was transferred to the ICU for further management and placed on dilt drip. Patient History Family & Social History Social History: No smoking or alcohol use history. Safety & Behavioral: Been Physically Hurt or No Threatened By a Person Meds Home Medications and Allergies Home Medications Medication Instructions Recorded Confirmed Type Saccharomyces boulardii 250 mg 250 mg PO TID 08/17/22 08/17/22 History capsule aspirin 81 mg capsule 81 mg PO DAILY 08/17/22 08/17/22 History calcium citrate 200 mg (950 mg) 200 mg PO DAILY 08/17/22 08/17/22 History tablet digestive enzymes 1 tab PO DAILY 08/17/22 08/17/22 History diphenoxylate-atropine 2.5 1 tab PO TID 08/17/22 08/17/22 History mg-0.025 mg tablet (Lomotil) esomeprazole magnesium 40 mg 40 mg PO DAILY 08/17/22 08/17/22 History capsule,delayed release (Nexium) gabapentin 100 mg capsule 100 mg PO DAILY 08/17/22 08/17/22 History glutamine 500 mg capsule 500 mg PO QID PRN Pain (Scale 08/17/22 08/17/22 History Score 1-3) levothyroxine 125 mcg tablet 125 mcg PO DAILY 08/17/22 08/17/22 History (Synthroid) loratadine 10 mg disintegrating 10 mg PO DAILY PRN Allergy Symptoms 08/17/22 08/17/22 History tablet (Allergy Relief (loratadine)) metoprolol succinate 50 mg 50 mg PO BID 08/17/22 08/17/22 History tablet,extended release 24 hr omeprazole 40 mg capsule,delayed 40 mg PO DAILY 08/17/22 08/17/22 History release frdhbruvgrny-jsmugnrdhryva-ppirahk 5 ml PO Q4-6H PRN Pain (Scale 08/17/22 08/17/22 History 6.25 mg-5 mg-10 mg/5 mL oral syrup Score 1-3) (Promethazine VC-Codeine) rosuvastatin 20 mg tablet (Crestor) 20 mg PO DAILY 08/17/22 History rosuvastatin 40 mg tablet 40 mg PO DAILY 08/17/22 08/17/22 History tramadol 50 mg tablet 50 mg PO BID PRN Pain (Scale Score 08/17/22 08/17/22 History 1-3) Allergies Allergy/AdvReac Type Severity Reaction Status Date / Time lorazepam [From Ativan] Allergy Severe Anaphylaxis Verified 08/17/22 15:14 morphine Allergy Severe Anaphylaxis Verified 08/17/22 15:14 Review of Systems Review of Systems Narrative: All other systems reviewed with the patient and are negative unless otherwise stated. Exam Vital Signs (past 8 hours): - 08/17/22 13:20 08/17/22 12:59 08/17/22 13:00 Temperature 98.9 F Pulse Rate 120 H 114 H 118 H Respiratory Rate 30 H 29 H 40 H Blood Pressure 165/98 H Pulse Oximetry 95 98 95 Oxygen Delivery Method Room Air Fraction of Inspired Oxygen 08/17/22 13:01 08/17/22 13:01 08/17/22 13:05 Temperature Pulse Rate 120 H Respiratory Rate 34 H Blood Pressure 165/98 H 176/88 H Pulse Oximetry 93 Oxygen Delivery Method Fraction of Inspired Oxygen 08/17/22 13:05 08/17/22 13:10 08/17/22 13:10 Temperature Pulse Rate 126 H 130 H Respiratory Rate 39 H 39 H Blood Pressure 158/99 H Pulse Oximetry 95 96 Oxygen Delivery Method Fraction of Inspired Oxygen 08/17/22 13:15 08/17/22 13:16 08/17/22 13:16 Temperature Pulse Rate 137 H 119 H Respiratory Rate 37 H 29 H Blood Pressure 174/148 H Pulse Oximetry 96 95 Oxygen Delivery Method Fraction of Inspired Oxygen 08/17/22 13:20 08/17/22 13:20 08/17/22 13:25 Temperature Pulse Rate 119 H 120 H Respiratory Rate 33 H 36 H Blood Pressure 187/143 H Pulse Oximetry 95 95 Oxygen Delivery Method Fraction of Inspired Oxygen 08/17/22 13:26 08/17/22 13:26 08/17/22 13:30 Temperature Pulse Rate 121 H Respiratory Rate 31 H Blood Pressure 166/78 H 173/88 H Pulse Oximetry 95 Oxygen Delivery Method Fraction of Inspired Oxygen 08/17/22 13:30 08/17/22 13:34 08/17/22 13:34 Temperature Pulse Rate 123 H 122 H Respiratory Rate 33 H 42 H Blood Pressure 162/91 H Pulse Oximetry 95 97 Oxygen Delivery Method Fraction of Inspired Oxygen 08/17/22 13:35 08/17/22 13:35 08/17/22 13:40 Temperature Pulse Rate 120 H Respiratory Rate 46 H Blood Pressure 160/67 H 166/78 H Pulse Oximetry 97 Oxygen Delivery Method Fraction of Inspired Oxygen 08/17/22 13:40 08/17/22 13:43 08/17/22 13:43 Temperature Pulse Rate 123 H 126 H Respiratory Rate 35 H 26 H Blood Pressure 169/96 H Pulse Oximetry 96 95 Oxygen Delivery Method Fraction of Inspired Oxygen 08/17/22 13:45 08/17/22 13:45 08/17/22 13:50 Temperature Pulse Rate 122 H Respiratory Rate 35 H Blood Pressure 147/72 H 163/75 H Pulse Oximetry 96 Oxygen Delivery Method Fraction of Inspired Oxygen 08/17/22 13:50 08/17/22 13:55 08/17/22 13:55 Temperature Pulse Rate 121 H 120 H Respiratory Rate 33 H 27 H Blood Pressure 156/70 H Pulse Oximetry 95 95 Oxygen Delivery Method Fraction of Inspired Oxygen 08/17/22 14:00 08/17/22 14:00 08/17/22 14:10 Temperature Pulse Rate 118 H Respiratory Rate 41 H Blood Pressure 125/68 153/89 H Pulse Oximetry 94 Oxygen Delivery Method Fraction of Inspired Oxygen 35 08/17/22 14:27 08/17/22 14:05 08/17/22 14:05 Temperature Pulse Rate 135 H 118 H Respiratory Rate 38 H Blood Pressure 125/91 H 122/81 Pulse Oximetry 96 Oxygen Delivery Method Fraction of Inspired Oxygen 08/17/22 14:10 08/17/22 14:10 08/17/22 14:15 Temperature Pulse Rate 117 H 130 H Respiratory Rate 32 H 25 H Blood Pressure 153/89 H Pulse Oximetry 96 97 Oxygen Delivery Method BiPAP Fraction of Inspired Oxygen 08/17/22 14:20 08/17/22 14:20 08/17/22 14:25 Temperature Pulse Rate 125 H Respiratory Rate 26 H Blood Pressure 136/77 125/91 H Pulse Oximetry 96 Oxygen Delivery Method Fraction of Inspired Oxygen 08/17/22 14:25 08/17/22 14:30 08/17/22 14:30 Temperature Pulse Rate 121 H 132 H Respiratory Rate 24 24 Blood Pressure 121/78 Pulse Oximetry 97 96 Oxygen Delivery Method Fraction of Inspired Oxygen 08/17/22 14:35 08/17/22 14:35 08/17/22 14:40 Temperature Pulse Rate 106 H Respiratory Rate 28 H Blood Pressure 127/80 114/86 Pulse Oximetry 95 Oxygen Delivery Method Fraction of Inspired Oxygen 08/17/22 14:40 08/17/22 14:45 08/17/22 14:45 Temperature Pulse Rate 105 H 102 H Respiratory Rate 24 25 H Blood Pressure 116/83 Pulse Oximetry 94 94 Oxygen Delivery Method Fraction of Inspired Oxygen 08/17/22 14:50 08/17/22 14:50 08/17/22 14:55 Temperature Pulse Rate 102 H Respiratory Rate 25 H Blood Pressure 113/86 116/78 Pulse Oximetry 95 Oxygen Delivery Method Fraction of Inspired Oxygen 08/17/22 14:55 08/17/22 15:00 08/17/22 15:00 Temperature Pulse Rate 103 H 105 H Respiratory Rate 24 22 Blood Pressure 125/83 Pulse Oximetry 95 96 Oxygen Delivery Method Fraction of Inspired Oxygen 08/17/22 15:05 08/17/22 15:05 08/17/22 15:10 Temperature Pulse Rate 102 H Respiratory Rate 24 Blood Pressure 122/74 119/75 Pulse Oximetry 96 Oxygen Delivery Method Fraction of Inspired Oxygen 08/17/22 15:10 08/17/22 15:15 08/17/22 15:15 Temperature Pulse Rate 111 H 116 H Respiratory Rate 23 24 Blood Pressure 130/75 Pulse Oximetry 96 95 Oxygen Delivery Method BiPAP Fraction of Inspired Oxygen Fraction of Inspired Oxygen 35 Oxygen Delivery Method BiPAP Narrative Exam Narrative: GEN: diaphoretic, obese, wearing bipap HEENT: PERRL NECK: trachea midline, no JVD CV: tachycardic, irregularly irregular, no murmurs PULM: clear bilaterally ABD: soft, nontender, nondistended, no organomegaly SKIN: rash present on abdomen EXT: warm and well perfused, 2+ edema of LE's NEURO: awake, alert, oriented, no focal deficits Objective Labs Result Diagrams: 08/17/22 13:00 08/17/22 13:00 Labs: Laboratory Results - last 24 hr 08/17/22 08/17/22 08/17/22 13:00 13:00 13:00 WBC 13.8 H RBC 5.54 Hgb 16.2 Hct 47.1 MCV 85.0 MCH 29.2 MCHC 34.3 RDW 15.7 H Plt Count 305 Neut % (Auto) 69.6 Lymph % (Auto) 12.4 L [place] % (Auto) 12.7 Eos % (Auto) 4.9 H Baso % (Auto) 0.4 Neut # (Auto) 9600 H Lymph # (Auto) 1700 [place] # (Auto) 1800 H Eos # (Auto) 700 H Baso # (Auto) 100 Sodium 139 Potassium 4.8 Chloride 104 Carbon Dioxide 28 BUN 16 Creatinine 1.05 Estimated GFR > 60 BUN/Creatinine Ratio 15.2 Glucose 47 L Lactate Calcium 9.5 Magnesium 2.1 Total Bilirubin 0.4 AST 27 ALT 39 Alkaline Phosphatase 87 Total Creatine Kinase 50 L CK-MB (CK-2) TNP CK-MB (CK-2) Rel Index TNP Troponin I < 0.012 NT-Pro-B Natriuret Pep 948 H Total Protein 7.4 Albumin 3.9 Globulin 3.5 Albumin/Globulin Ratio 1.1 Lipase 179 Urine Color Urine Appearance Urine pH Ur Specific [place] Urine Protein Urine Glucose (UA) Urine Ketones Urine Occult Blood Urine Nitrate Urine Bilirubin Urine Urobilinogen Ur Leukocyte Esterase Urine RBC Urine WBC Urine Bacteria Ur Culture Indicated? Micro UA Comment SARS-CoV-2 (PCR) 08/17/22 08/17/22 08/17/22 13:00 13:00 13:18 WBC RBC Hgb Hct MCV MCH MCHC RDW Plt Count Neut % (Auto) Lymph % (Auto) [place] % (Auto) Eos % (Auto) Baso % (Auto) Neut # (Auto) Lymph # (Auto) [place] # (Auto) Eos # (Auto) Baso # (Auto) Sodium Potassium Chloride Carbon Dioxide BUN Creatinine Estimated GFR BUN/Creatinine Ratio Glucose Lactate 1.2 Calcium Magnesium Total Bilirubin AST ALT Alkaline Phosphatase Total Creatine Kinase CK-MB (CK-2) CK-MB (CK-2) Rel Index Troponin I NT-Pro-B Natriuret Pep Total Protein Albumin Globulin Albumin/Globulin Ratio Lipase Urine Color Yellow Urine Appearance Clear Urine pH 7.5 Ur Specific [place] 1.010 Urine Protein Negative Urine Glucose (UA) Negative Urine Ketones Negative Urine Occult Blood Negative Urine Nitrate Negative Urine Bilirubin Negative Urine Urobilinogen 0.2 Ur Leukocyte Esterase Negative Urine RBC None seen Urine WBC None seen Urine Bacteria None seen Ur Culture Indicated? Cult not indicated Micro UA Comment Microscopic normal SARS-CoV-2 (PCR) Negative Assessment & Plan Assessment & Plan narrative: # acute hypoxic respiratory failure -patient very short of breath in ED requiring BiPAP to maintain sats -etiology not completely clear however AFib RVR may be contributing or patient may have recieved excess IV fluids while recently hospitalized at [facility] and discharged 5 days ago -BNP 948 -CTA chest showed right lower lobe atelectasis and R elevated hemidiaphragm but no PE, infiltrates or pericardial effusion. per previous CXR's the right hemidiaphragm is chronic -obtain echo, will give IV lasix 40 daily as LE edema present -BiPAP as needed -appreciate tele ICU recs # new onset atrial fibrillation with RVR -heart rate up to 130s in ED -start diltiazem drip -echo as above -[id number] score of 1 therefore no anticoagulation needed, continue home aspirin # recent pericardial cyst removal -patient had large pericardial cyst removed via davinci robot by Dr. Moraes CT surgeon at [facility] on 08/08 -echo as above # hypertension, chronic -continue home # HLD, chronic -continue statin # hypothyroidism, chronic -continue home synthroid -check TSH # morbid obesity -BMI 40 # legally blind Code status is full code. COVID negative. DVT prophylaxis with heparin subQ. Proxy is mother Philomena. I have reviewed home meds and used all available resources to reconcile the home meds. I spent a total of 35 minutes of critical care time on this patient's care today; this time is exclusive of procedural time. This patient will be admitted as inpatient and will require greater than 2 midnights of hospital time to treat atrial fibrillation with RVR and hypoxic respiratory failure. Time Spent With Patient Critical Care time: I spent a total of [] minutes of critical care time on this patient's care today; this time is exclusive of procedural time.
[2022-08-17] MEDS: DILTIAZEM 125 MG/125 ML PIGGYBACK 10 MG IV (16:24)
--- NOTE | 2022-08-17 16:26 | RT ---
PT TRANS FROM ED TO ICU ON BIPAP W/O ANY APPARENT COMPLICATIONS.
[2022-08-17 18:22] LABS: Hemoglobin A1C% w Est Avg Glu 5.8 % (4.0-6.0)
[2022-08-17 18:32] LABS: Cholesterol 146 mg/dL (140-199); HDL Cholesterol 33 mg/dL (40-60); LDL Cholesterol Calculated 91 mg/dL (<100); Triglycerides 108 mg/dL (35-150)
--- NOTE | 2022-08-17 18:50 | P.TELICUCN_ITS ---
History of Present Illness Consult details IF CAMERA ACTIVATED, patient seen via real-time interactive audiovisual communication: Camera activated Chief complaint: SOB, new afib, s/p pericardial cyst removal 08/12 Consent obtained for tele-overlock operator care: Yes Patient Location: ICU Provider location (State): [place] Other participants/roles: bedside nurse Narrative: 51 year old male with PMHx of recent large pericardial cyst removal 1 week ago legal blindness, DAKOTAH on CPAP, HTN, HLD, morbid obesity, hypothyroidism and GERD had shortness breath with afib with RVR requiring bipap,cardizem and diuretics in ED. Had approximately 2 liters of urine output since. appears much improved on evaluation Current Medications Current Medications Medications: Home Medications Saccharomyces boulardii 250 mg capsule 250 mg PO TID 08/17/22 [History Confirmed 08/17/22] aspirin 81 mg capsule 81 mg PO DAILY 08/17/22 [History Confirmed 08/17/22] calcium citrate 200 mg (950 mg) tablet 200 mg PO DAILY 08/17/22 [History Confirmed 08/17/22] digestive enzymes 1 tab PO DAILY 08/17/22 [History Confirmed 08/17/22] diphenoxylate-atropine 2.5 mg-0.025 mg tablet (Lomotil) 1 tab PO TID 08/17/22 [ History Confirmed 08/17/22] esomeprazole magnesium 40 mg capsule,delayed release (Nexium) 40 mg PO DAILY 08/17/22 [History Confirmed 08/17/22] gabapentin 100 mg capsule 100 mg PO TID 08/17/22 [History Confirmed 08/17/22] glutamine 500 mg capsule 500 mg PO QID PRN Pain (Scale Score 1-3) 08/17/22 [His tory Confirmed 08/17/22] levothyroxine 125 mcg tablet (Synthroid) 125 mcg PO DAILY 08/17/22 [History Confirmed 08/17/22] loratadine 10 mg disintegrating tablet (Allergy Relief (loratadine)) 10 mg PO D AILY PRN Allergy Symptoms 08/17/22 [History Confirmed 08/17/22] metoprolol succinate 50 mg tablet,extended release 24 hr 50 mg PO BID 08/17/22 [History Confirmed 08/17/22] omeprazole 40 mg capsule,delayed release 40 mg PO DAILY 08/17/22 [History Confirmed 08/17/22] rkmsajtdbrko-wiocvfknmwrii-hlpbtcx 6.25 mg-5 mg-10 mg/5 mL oral syrup (Promethazine VC-Codeine) 5 ml PO Q4-6H PRN Pain (Scale Score 1-3) 08/17/22 [History Confirmed 08/17/22] rosuvastatin 20 mg tablet (Crestor) 20 mg PO DAILY 08/17/22 [History] rosuvastatin 40 mg tablet 40 mg PO DAILY 08/17/22 [History Confirmed 08/17/22] tramadol 50 mg tablet 50 mg PO BID PRN Pain (Scale Score 1-3) 08/17/22 [History Confirmed 08/17/22] Visit Medications (administered) Generic Name Dose Route Start Last Admin Trade Name Freq PRN Reason Stop Dose Admin DILTIAZEM 125 mg in 125 mls @ 5 mls/hr 08/17/22 16:00 08/17/22 16:24 Diltiazem 125 Mg/125 Ml-D5w IV 10 mg/hr TITRATE LESLY 10 mls/hr Administration Protocol 5 MG/HR Exam Vital Signs (past 8 hours): - 08/17/22 13:20 08/17/22 12:59 08/17/22 13:00 Temperature 98.9 F Pulse Rate 120 H 114 H 118 H Respiratory Rate 30 H 29 H 40 H Blood Pressure 165/98 H Pulse Oximetry 95 98 95 Oxygen Delivery Method Room Air Fraction of Inspired Oxygen 08/17/22 13:01 08/17/22 13:01 08/17/22 13:05 Temperature Pulse Rate 120 H Respiratory Rate 34 H Blood Pressure 165/98 H 176/88 H Pulse Oximetry 93 Oxygen Delivery Method Fraction of Inspired Oxygen 08/17/22 13:05 08/17/22 13:10 08/17/22 13:10 Temperature Pulse Rate 126 H 130 H Respiratory Rate 39 H 39 H Blood Pressure 158/99 H Pulse Oximetry 95 96 Oxygen Delivery Method Fraction of Inspired Oxygen 08/17/22 13:15 08/17/22 13:16 08/17/22 13:16 Temperature Pulse Rate 137 H 119 H Respiratory Rate 37 H 29 H Blood Pressure 174/148 H Pulse Oximetry 96 95 Oxygen Delivery Method Fraction of Inspired Oxygen 08/17/22 13:20 08/17/22 13:20 08/17/22 13:25 Temperature Pulse Rate 119 H 120 H Respiratory Rate 33 H 36 H Blood Pressure 187/143 H Pulse Oximetry 95 95 Oxygen Delivery Method Fraction of Inspired Oxygen 08/17/22 13:26 08/17/22 13:26 08/17/22 13:30 Temperature Pulse Rate 121 H Respiratory Rate 31 H Blood Pressure 166/78 H 173/88 H Pulse Oximetry 95 Oxygen Delivery Method Fraction of Inspired Oxygen 08/17/22 13:30 08/17/22 13:34 08/17/22 13:34 Temperature Pulse Rate 123 H 122 H Respiratory Rate 33 H 42 H Blood Pressure 162/91 H Pulse Oximetry 95 97 Oxygen Delivery Method Fraction of Inspired Oxygen 08/17/22 13:35 08/17/22 13:35 08/17/22 13:40 Temperature Pulse Rate 120 H Respiratory Rate 46 H Blood Pressure 160/67 H 166/78 H Pulse Oximetry 97 Oxygen Delivery Method Fraction of Inspired Oxygen 08/17/22 13:40 08/17/22 13:43 08/17/22 13:43 Temperature Pulse Rate 123 H 126 H Respiratory Rate 35 H 26 H Blood Pressure 169/96 H Pulse Oximetry 96 95 Oxygen Delivery Method Fraction of Inspired Oxygen 08/17/22 13:45 08/17/22 13:45 08/17/22 13:50 Temperature Pulse Rate 122 H Respiratory Rate 35 H Blood Pressure 147/72 H 163/75 H Pulse Oximetry 96 Oxygen Delivery Method Fraction of Inspired Oxygen 08/17/22 13:50 08/17/22 13:55 08/17/22 13:55 Temperature Pulse Rate 121 H 120 H Respiratory Rate 33 H 27 H Blood Pressure 156/70 H Pulse Oximetry 95 95 Oxygen Delivery Method Fraction of Inspired Oxygen 08/17/22 14:00 08/17/22 14:00 08/17/22 14:10 Temperature Pulse Rate 118 H Respiratory Rate 41 H Blood Pressure 125/68 153/89 H Pulse Oximetry 94 Oxygen Delivery Method Fraction of Inspired Oxygen 35 08/17/22 14:27 08/17/22 14:05 08/17/22 14:05 Temperature Pulse Rate 135 H 118 H Respiratory Rate 38 H Blood Pressure 125/91 H 122/81 Pulse Oximetry 96 Oxygen Delivery Method Fraction of Inspired Oxygen 08/17/22 14:10 08/17/22 14:10 08/17/22 14:15 Temperature Pulse Rate 117 H 130 H Respiratory Rate 32 H 25 H Blood Pressure 153/89 H Pulse Oximetry 96 97 Oxygen Delivery Method BiPAP Fraction of Inspired Oxygen 08/17/22 14:20 08/17/22 14:20 08/17/22 14:25 Temperature Pulse Rate 125 H Respiratory Rate 26 H Blood Pressure 136/77 125/91 H Pulse Oximetry 96 Oxygen Delivery Method Fraction of Inspired Oxygen 08/17/22 14:25 08/17/22 14:30 08/17/22 14:30 Temperature Pulse Rate 121 H 132 H Respiratory Rate 24 24 Blood Pressure 121/78 Pulse Oximetry 97 96 Oxygen Delivery Method Fraction of Inspired Oxygen 08/17/22 14:35 08/17/22 14:35 08/17/22 14:40 Temperature Pulse Rate 106 H Respiratory Rate 28 H Blood Pressure 127/80 114/86 Pulse Oximetry 95 Oxygen Delivery Method Fraction of Inspired Oxygen 08/17/22 14:40 08/17/22 14:45 08/17/22 14:45 Temperature Pulse Rate 105 H 102 H Respiratory Rate 24 25 H Blood Pressure 116/83 Pulse Oximetry 94 94 Oxygen Delivery Method Fraction of Inspired Oxygen 08/17/22 14:50 08/17/22 14:50 08/17/22 14:55 Temperature Pulse Rate 102 H Respiratory Rate 25 H Blood Pressure 113/86 116/78 Pulse Oximetry 95 Oxygen Delivery Method Fraction of Inspired Oxygen 08/17/22 14:55 08/17/22 15:00 08/17/22 15:00 Temperature Pulse Rate 103 H 105 H Respiratory Rate 24 22 Blood Pressure 125/83 Pulse Oximetry 95 96 Oxygen Delivery Method Fraction of Inspired Oxygen 08/17/22 15:05 08/17/22 15:05 08/17/22 15:10 Temperature Pulse Rate 102 H Respiratory Rate 24 Blood Pressure 122/74 119/75 Pulse Oximetry 96 Oxygen Delivery Method Fraction of Inspired Oxygen 08/17/22 15:10 08/17/22 15:15 08/17/22 15:15 Temperature Pulse Rate 111 H 116 H Respiratory Rate 23 24 Blood Pressure 130/75 Pulse Oximetry 96 95 Oxygen Delivery Method BiPAP Fraction of Inspired Oxygen 08/17/22 16:22 08/17/22 15:20 08/17/22 15:20 Temperature Pulse Rate 108 H Respiratory Rate 23 Blood Pressure 125/80 129/80 Pulse Oximetry 96 Oxygen Delivery Method Fraction of Inspired Oxygen 35 08/17/22 15:25 08/17/22 15:25 08/17/22 15:30 Temperature Pulse Rate 107 H Respiratory Rate 23 Blood Pressure 133/62 119/72 Pulse Oximetry 96 Oxygen Delivery Method Fraction of Inspired Oxygen 08/17/22 15:30 08/17/22 15:35 08/17/22 15:35 Temperature Pulse Rate 113 H 113 H Respiratory Rate 23 23 Blood Pressure 128/67 Pulse Oximetry 96 95 Oxygen Delivery Method Fraction of Inspired Oxygen 08/17/22 15:40 08/17/22 15:40 08/17/22 15:45 Temperature Pulse Rate 110 H Respiratory Rate 22 Blood Pressure 128/72 134/66 Pulse Oximetry 97 Oxygen Delivery Method Fraction of Inspired Oxygen 08/17/22 15:45 08/17/22 15:50 08/17/22 15:50 Temperature Pulse Rate 123 H 115 H Respiratory Rate 23 21 Blood Pressure 113/63 Pulse Oximetry 96 96 Oxygen Delivery Method Fraction of Inspired Oxygen 08/17/22 15:55 08/17/22 15:55 08/17/22 16:00 Temperature Pulse Rate 117 H Respiratory Rate 19 Blood Pressure 117/69 129/75 Pulse Oximetry 96 Oxygen Delivery Method Fraction of Inspired Oxygen 08/17/22 16:00 08/17/22 17:00 08/17/22 18:00 Temperature 96.9 F L Pulse Rate 129 H 102 H 92 H Respiratory Rate 25 H 15 16 Blood Pressure 139/88 124/85 Pulse Oximetry 98 96 97 Oxygen Delivery Method Fraction of Inspired Oxygen 08/17/22 15:41 Temperature Pulse Rate Respiratory Rate Blood Pressure Pulse Oximetry Oxygen Delivery Method BiPAP Fraction of Inspired Oxygen Fraction of Inspired Oxygen 35 Oxygen Delivery Method BiPAP Objective Labs Result Diagrams: 08/17/22 13:00 08/17/22 13:00 Labs: Laboratory Results - last 24 hr 08/17/22 08/17/22 08/17/22 13:00 13:00 13:00 WBC 13.8 H RBC 5.54 Hgb 16.2 Hct 47.1 MCV 85.0 MCH 29.2 MCHC 34.3 RDW 15.7 H Plt Count 305 Neut % (Auto) 69.6 Lymph % (Auto) 12.4 L [place] % (Auto) 12.7 Eos % (Auto) 4.9 H Baso % (Auto) 0.4 Neut # (Auto) 9600 H Lymph # (Auto) 1700 [place] # (Auto) 1800 H Eos # (Auto) 700 H Baso # (Auto) 100 Sodium 139 Potassium 4.8 Chloride 104 Carbon Dioxide 28 BUN 16 Creatinine 1.05 Estimated GFR > 60 BUN/Creatinine Ratio 15.2 Glucose 47 L Hemoglobin A1c Lactate Calcium 9.5 Magnesium 2.1 Total Bilirubin 0.4 AST 27 ALT 39 Alkaline Phosphatase 87 Total Creatine Kinase 50 L CK-MB (CK-2) TNP CK-MB (CK-2) Rel Index TNP Troponin I < 0.012 NT-Pro-B Natriuret Pep 948 H Total Protein 7.4 Albumin 3.9 Globulin 3.5 Albumin/Globulin Ratio 1.1 Triglycerides Cholesterol LDL Cholesterol, Calc HDL Cholesterol Lipase 179 Urine Color Urine Appearance Urine pH Ur Specific [place] Urine Protein Urine Glucose (UA) Urine Ketones Urine Occult Blood Urine Nitrate Urine Bilirubin Urine Urobilinogen Ur Leukocyte Esterase Urine RBC Urine WBC Urine Bacteria Ur Culture Indicated? Micro UA Comment SARS-CoV-2 (PCR) 08/17/22 08/17/22 08/17/22 13:00 13:00 13:18 WBC RBC Hgb Hct MCV MCH MCHC RDW Plt Count Neut % (Auto) Lymph % (Auto) [place] % (Auto) Eos % (Auto) Baso % (Auto) Neut # (Auto) Lymph # (Auto) [place] # (Auto) Eos # (Auto) Baso # (Auto) Sodium Potassium Chloride Carbon Dioxide BUN Creatinine Estimated GFR BUN/Creatinine Ratio Glucose Hemoglobin A1c Lactate 1.2 Calcium Magnesium Total Bilirubin AST ALT Alkaline Phosphatase Total Creatine Kinase CK-MB (CK-2) CK-MB (CK-2) Rel Index Troponin I NT-Pro-B Natriuret Pep Total Protein Albumin Globulin Albumin/Globulin Ratio Triglycerides Cholesterol LDL Cholesterol, Calc HDL Cholesterol Lipase Urine Color Yellow Urine Appearance Clear Urine pH 7.5 Ur Specific [place] 1.010 Urine Protein Negative Urine Glucose (UA) Negative Urine Ketones Negative Urine Occult Blood Negative Urine Nitrate Negative Urine Bilirubin Negative Urine Urobilinogen 0.2 Ur Leukocyte Esterase Negative Urine RBC None seen Urine WBC None seen Urine Bacteria None seen Ur Culture Indicated? Cult not indicated Micro UA Comment Microscopic normal SARS-CoV-2 (PCR) Negative 08/17/22 08/17/22 18:00 18:00 WBC RBC Hgb Hct MCV MCH MCHC RDW Plt Count Neut % (Auto) Lymph % (Auto) [place] % (Auto) Eos % (Auto) Baso % (Auto) Neut # (Auto) Lymph # (Auto) [place] # (Auto) Eos # (Auto) Baso # (Auto) Sodium Potassium Chloride Carbon Dioxide BUN Creatinine Estimated GFR BUN/Creatinine Ratio Glucose Hemoglobin A1c 5.8 Lactate Calcium Magnesium Total Bilirubin AST ALT Alkaline Phosphatase Total Creatine Kinase CK-MB (CK-2) CK-MB (CK-2) Rel Index Troponin I NT-Pro-B Natriuret Pep Total Protein Albumin Globulin Albumin/Globulin Ratio Triglycerides 108 Cholesterol 146 LDL Cholesterol, Calc 91 HDL Cholesterol 33 L Lipase Urine Color Urine Appearance Urine pH Ur Specific [place] Urine Protein Urine Glucose (UA) Urine Ketones Urine Occult Blood Urine Nitrate Urine Bilirubin Urine Urobilinogen Ur Leukocyte Esterase Urine RBC Urine WBC Urine Bacteria Ur Culture Indicated? Micro UA Comment SARS-CoV-2 (PCR) Assessment & Plan Assessment & Plan narrative: patient seen with bedside nurse chart/labs/imaging reivewed 51 yaer old male with acute hypoxic rep failure afib with rvr atelectatis currently afebrile, HD stable cardizem drip HR 80s Plan -neurocheck seizure precautions -avoid opiods/benzos -bipap to keep sat aobve 92% -serial ekg/trop -echo reviewed, ef 65% -consider cardio eval -cardizem drip for now, can start po when pt can tolerated -monitor ins/outs -replace lytes prn -gi/dvt ppx -home meds, synthroid, statin -please call eICU prn Total ccm time 45 mins . Time Spent With Patient Critical Care time: I spent a total of [] minutes of critical care time on this patient's care today; this time is exclusive of procedural time.
[2022-08-17 19:04] LABS: TSH w/ Reflex to FT4 1.11 uIU/mL (0.47-4.68)
[2022-08-17 19:22] LABS: Troponin I < 0.012 ng/mL (0.01-0.034)
[2022-08-17] MEDS: GABAPENTIN 100 MG CAPSULE PO (20:33)
[2022-08-17] MEDS: TRAMADOL 50 MG TABLET 100 MG PO (23:59)
[2022-08-17] MEDS: MELATONIN 3 MG TABLET 6 MG PO (23:59)
[2022-08-18] VITALS (41 sets, daily range): BP systolic 116–153; BP diastolic 60–100; PULSE 85–115; RESP 17–32; TEMP 36.4–37; O2SAT 90–96
[2022-08-18] MEDS: PANTOPRAZOLE DR 40 MG TABLET PO (06:07)
[2022-08-18] MEDS: ACETAMINOPHEN 325 MG TABLET 650 MG PO ×3 (06:07→23:57)
[2022-08-18] MEDS: LEVOTHYROXINE 125 MCG TABLET PO (06:07)
[2022-08-18 06:57] LABS: Add Manual Diff / Slide Review NO; Basophils Absolute Auto 100 /uL (0-100); Basophils Percent Auto 0.5 % (0-2); Eosinophils Absolute Auto 700 /uL (0-450); Eosinophils Percent Auto 5.5 % (2-4); Hematocrit 46.1 % (41-53); Hemoglobin 15.2 g/dL (13.5-17.5); Lymphocytes Absolute Auto 1400 /uL (1100-4500); Lymphocytes Percent Auto 11.6 % (25-40); Mean Corpuscular Hemoglobin 28.1 PG (26-34); Mean Corpuscular Volume 85.1 fL (80-100); Monocytes Absolute Auto 1300 /uL (0-900); Monocytes Percent Auto 10.3 % (3-14); Neutrophils Absolute Auto 8800 /uL (1500-7000); Neutrophils Percent Auto 72.1 % (50-75); Platelet Count 278 X10^3/uL (150-400); Red Blood Cell Count 5.42 X10^6/uL (4.5-5.9); White Blood Cell Count 12.2 X10^3/uL (4.5-11.0)
[2022-08-18 07:09] LABS: Blood Urea Nitrogen 18 mg/dL (9-20); Carbon Dioxide 28 mmol/L (22-32); Chloride 101 mmol/L (98-107); Estimated Glomerular Filt Rate > 60 mL/min (>60); Glucose 113 mg/dL (70-100); HEMOLYSIS 26 (0-50); Potassium 4.7 mmol/L (3.4-5.1); Sodium 136 mmol/L (137-145)
[2022-08-18 07:18] LABS: Troponin I < 0.012 ng/mL (0.01-0.034)
[2022-08-18] MEDS: FUROSEMIDE 40 MG/4 ML VIAL IV (08:58)
[2022-08-18] MEDS: METOPROLOL ER 50 MG TABLET 100 MG PO ×2 (08:58→19:54)
[2022-08-18] MEDS: ENOXAPARIN 40 MG/0.4 ML SYRINGE SUBCUT (08:58)
[2022-08-18] MEDS: GABAPENTIN 100 MG CAPSULE PO ×3 (08:58→19:54)
[2022-08-18] MEDS: ASPIRIN EC 81 MG TABLET PO (08:58)
[2022-08-18] MEDS: CHLORTHALIDONE 25 MG TABLET PO (08:58)
--- NOTE | 2022-08-18 12:05 | PM.PN.1 ---
Subjective Subjective Date Patient Seen: 08/18/22 Time Patient Seen: 10:00 Interval history: Patient feeling better today and weaned off Bipap to 3L NC overnight. Notes increased cough and requesting mucinex. No chest pain. Dilt drip weaned off overnight. Exam Vital Signs (past 8 hours): - 08/18/22 04:30 08/18/22 04:30 08/18/22 05:00 Temperature Pulse Rate 91 H Respiratory Rate 21 Blood Pressure 143/80 H 124/92 H Pulse Oximetry 94 Oxygen Delivery Method Oxygen Flow Rate 08/18/22 05:00 08/18/22 05:30 08/18/22 05:30 Temperature Pulse Rate 92 H 94 H Respiratory Rate 20 20 Blood Pressure 126/83 Pulse Oximetry 93 92 Oxygen Delivery Method Oxygen Flow Rate 08/18/22 06:00 08/18/22 06:00 08/18/22 07:00 Temperature Pulse Rate 97 H 106 H Respiratory Rate 23 19 Blood Pressure 132/92 H Pulse Oximetry 94 96 Oxygen Delivery Method Oxygen Flow Rate 08/18/22 08:23 08/18/22 09:28 08/18/22 10:00 Temperature 97.9 F Pulse Rate 99 H 105 H Respiratory Rate 24 Blood Pressure 121/93 H 121/94 H Pulse Oximetry 96 Oxygen Delivery Method Nasal Cannula Oxygen Flow Rate 3 08/18/22 11:03 Temperature 98.0 F Pulse Rate 95 H Respiratory Rate 21 Blood Pressure 121/79 Pulse Oximetry 94 Oxygen Delivery Method Oxygen Flow Rate 3 Fraction of Inspired Oxygen 21 SaO2/FiO2 Ratio 447 Oxygen Delivery Method Nasal Cannula Oxygen Flow Rate 3 Narrative Exam Narrative: GEN: diaphoretic, obese, wearing bipap HEENT: PERRL NECK: trachea midline, no JVD CV: tachycardic, irregularly irregular, no murmurs PULM: clear bilaterally ABD: soft, nontender, nondistended, no organomegaly SKIN: rash present on abdomen EXT: warm and well perfused, 2+ edema of LE's NEURO: awake, alert, oriented, no focal deficits Objective Labs Result Diagrams: 08/18/22 06:29 08/18/22 06:29 Labs: Laboratory Results - last 24 hr 08/17/22 08/17/22 08/17/22 13:00 13:00 13:00 WBC 13.8 H RBC 5.54 Hgb 16.2 Hct 47.1 MCV 85.0 MCH 29.2 MCHC 34.3 RDW 15.7 H Plt Count 305 Neut % (Auto) 69.6 Lymph % (Auto) 12.4 L [place] % (Auto) 12.7 Eos % (Auto) 4.9 H Baso % (Auto) 0.4 Neut # (Auto) 9600 H Lymph # (Auto) 1700 [place] # (Auto) 1800 H Eos # (Auto) 700 H Baso # (Auto) 100 Sodium 139 Potassium 4.8 Chloride 104 Carbon Dioxide 28 BUN 16 Creatinine 1.05 Estimated GFR > 60 BUN/Creatinine Ratio 15.2 Glucose 47 L Hemoglobin A1c Lactate Calcium 9.5 Magnesium 2.1 Total Bilirubin 0.4 AST 27 ALT 39 Alkaline Phosphatase 87 Total Creatine Kinase 50 L CK-MB (CK-2) TNP CK-MB (CK-2) Rel Index TNP Troponin I < 0.012 NT-Pro-B Natriuret Pep 948 H Total Protein 7.4 Albumin 3.9 Globulin 3.5 Albumin/Globulin Ratio 1.1 Triglycerides Cholesterol LDL Cholesterol, Calc HDL Cholesterol Lipase 179 TSH Urine Color Urine Appearance Urine pH Ur Specific [place] Urine Protein Urine Glucose (UA) Urine Ketones Urine Occult Blood Urine Nitrate Urine Bilirubin Urine Urobilinogen Ur Leukocyte Esterase Urine RBC Urine WBC Urine Bacteria Ur Culture Indicated? Micro UA Comment SARS-CoV-2 (PCR) 08/17/22 08/17/22 08/17/22 13:00 13:00 13:18 WBC RBC Hgb Hct MCV MCH MCHC RDW Plt Count Neut % (Auto) Lymph % (Auto) [place] % (Auto) Eos % (Auto) Baso % (Auto) Neut # (Auto) Lymph # (Auto) [place] # (Auto) Eos # (Auto) Baso # (Auto) Sodium Potassium Chloride Carbon Dioxide BUN Creatinine Estimated GFR BUN/Creatinine Ratio Glucose Hemoglobin A1c Lactate 1.2 Calcium Magnesium Total Bilirubin AST ALT Alkaline Phosphatase Total Creatine Kinase CK-MB (CK-2) CK-MB (CK-2) Rel Index Troponin I NT-Pro-B Natriuret Pep Total Protein Albumin Globulin Albumin/Globulin Ratio Triglycerides Cholesterol LDL Cholesterol, Calc HDL Cholesterol Lipase TSH Urine Color Yellow Urine Appearance Clear Urine pH 7.5 Ur Specific [place] 1.010 Urine Protein Negative Urine Glucose (UA) Negative Urine Ketones Negative Urine Occult Blood Negative Urine Nitrate Negative Urine Bilirubin Negative Urine Urobilinogen 0.2 Ur Leukocyte Esterase Negative Urine RBC None seen Urine WBC None seen Urine Bacteria None seen Ur Culture Indicated? Cult not indicated Micro UA Comment Microscopic normal SARS-CoV-2 (PCR) Negative 08/17/22 08/17/22 08/17/22 18:00 18:00 18:00 WBC RBC Hgb Hct MCV MCH MCHC RDW Plt Count Neut % (Auto) Lymph % (Auto) [place] % (Auto) Eos % (Auto) Baso % (Auto) Neut # (Auto) Lymph # (Auto) [place] # (Auto) Eos # (Auto) Baso # (Auto) Sodium Potassium Chloride Carbon Dioxide BUN Creatinine Estimated GFR BUN/Creatinine Ratio Glucose Hemoglobin A1c 5.8 Lactate Calcium Magnesium Total Bilirubin AST ALT Alkaline Phosphatase Total Creatine Kinase CK-MB (CK-2) CK-MB (CK-2) Rel Index Troponin I NT-Pro-B Natriuret Pep Total Protein Albumin Globulin Albumin/Globulin Ratio Triglycerides 108 Cholesterol 146 LDL Cholesterol, Calc 91 HDL Cholesterol 33 L Lipase TSH 1.11 Urine Color Urine Appearance Urine pH Ur Specific [place] Urine Protein Urine Glucose (UA) Urine Ketones Urine Occult Blood Urine Nitrate Urine Bilirubin Urine Urobilinogen Ur Leukocyte Esterase Urine RBC Urine WBC Urine Bacteria Ur Culture Indicated? Micro UA Comment SARS-CoV-2 (PCR) 08/17/22 08/18/22 08/18/22 18:39 06:29 06:29 WBC 12.2 H RBC 5.42 Hgb 15.2 Hct 46.1 MCV 85.1 MCH 28.1 MCHC 33.0 RDW 16.0 H Plt Count 278 Neut % (Auto) 72.1 Lymph % (Auto) 11.6 L [place] % (Auto) 10.3 Eos % (Auto) 5.5 H Baso % (Auto) 0.5 Neut # (Auto) 8800 H Lymph # (Auto) 1400 [place] # (Auto) 1300 H Eos # (Auto) 700 H Baso # (Auto) 100 Sodium 136 L Potassium 4.7 Chloride 101 Carbon Dioxide 28 BUN 18 Creatinine 0.90 Estimated GFR > 60 BUN/Creatinine Ratio 20.0 Glucose 113 H Hemoglobin A1c Lactate Calcium 9.0 Magnesium Total Bilirubin AST ALT Alkaline Phosphatase Total Creatine Kinase CK-MB (CK-2) CK-MB (CK-2) Rel Index Troponin I < 0.012 NT-Pro-B Natriuret Pep Total Protein Albumin Globulin Albumin/Globulin Ratio Triglycerides Cholesterol LDL Cholesterol, Calc HDL Cholesterol Lipase TSH Urine Color Urine Appearance Urine pH Ur Specific [place] Urine Protein Urine Glucose (UA) Urine Ketones Urine Occult Blood Urine Nitrate Urine Bilirubin Urine Urobilinogen Ur Leukocyte Esterase Urine RBC Urine WBC Urine Bacteria Ur Culture Indicated? Micro UA Comment SARS-CoV-2 (PCR) 08/18/22 06:29 WBC RBC Hgb Hct MCV MCH MCHC RDW Plt Count Neut % (Auto) Lymph % (Auto) [place] % (Auto) Eos % (Auto) Baso % (Auto) Neut # (Auto) Lymph # (Auto) [place] # (Auto) Eos # (Auto) Baso # (Auto) Sodium Potassium Chloride Carbon Dioxide BUN Creatinine Estimated GFR BUN/Creatinine Ratio Glucose Hemoglobin A1c Lactate Calcium Magnesium Total Bilirubin AST ALT Alkaline Phosphatase Total Creatine Kinase CK-MB (CK-2) CK-MB (CK-2) Rel Index Troponin I < 0.012 NT-Pro-B Natriuret Pep Total Protein Albumin Globulin Albumin/Globulin Ratio Triglycerides Cholesterol LDL Cholesterol, Calc HDL Cholesterol Lipase TSH Urine Color Urine Appearance Urine pH Ur Specific [place] Urine Protein Urine Glucose (UA) Urine Ketones Urine Occult Blood Urine Nitrate Urine Bilirubin Urine Urobilinogen Ur Leukocyte Esterase Urine RBC Urine WBC Urine Bacteria Ur Culture Indicated? Micro UA Comment SARS-CoV-2 (PCR) Assessment & Plan Assessment & Plan narrative: # acute hypoxic respiratory failure secondary to viral URI vs HFpEF exacerbation, improving -patient very short of breath in ED requiring BiPAP to maintain sats, now weaned to 3L NC. Patient noted increased cough of greenish sputum past week. -etiology not completely clear however AFib RVR may be contributing, or patient may have recieved excess IV fluids while recently hospitalized at [facility] and discharged 5 days ago -BNP 948 -CTA chest showed right lower lobe atelectasis and R elevated hemidiaphragm but no PE, infiltrates or pericardial effusion. per previous CXR's the right hemidiaphragm is chronic -echo with EF 65-70%, no focal WMA's or valvular disease, RVSP 25 -continue IV lasix 40 daily -BiPAP as needed -appreciate tele ICU recs -added robitussin PRN for cough # new onset atrial fibrillation with RVR -heart rate up to 130s in ED -continue diltiazem drip -restart home metoprolol XL at increased dose of 100mg BID -[id number] score of 1 therefore no anticoagulation needed, continue home aspirin # recent pericardial cyst removal -patient had large pericardial cyst removed via davinci robot by Dr. Moraes CT surgeon at [facility] on 08/08 -echo showed no evidence of cyst # hypertension, chronic -continue home # HLD, chronic -continue statin # hypothyroidism, chronic -continue home synthroid -TSH 1.11 # morbid obesity -BMI 40 # legally blind Code status is full code. COVID negative. DVT prophylaxis with heparin subQ. Proxy is mother Philomena. I have reviewed home meds and used all available resources to reconcile the home meds. This patient will be admitted as inpatient and will require greater than 2 midnights of hospital time to treat atrial fibrillation with RVR and hypoxic respiratory failure. Time Spent With Patient Critical Care time: I spent a total of [] minutes of critical care time on this patient's care today; this time is exclusive of procedural time.
--- NOTE | 2022-08-18 12:57 | P.TELICUPN_ITS ---
Subjective Subjective IF CAMERA ACTIVATED, patient seen via real-time interactive audiovisual communication: Camera activated Consent obtained for tele-programmer operator numerical control care: Yes Patient Location: ICU Provider location (State): [place] Other participants/roles: Dr. Cabrera Current Medications Current Medications Medications: Home Medications Saccharomyces boulardii 250 mg capsule 250 mg PO TID 08/17/22 [History Confirmed 08/17/22] aspirin 81 mg capsule 81 mg PO DAILY 08/17/22 [History Confirmed 08/17/22] calcium citrate 200 mg (950 mg) tablet 200 mg PO DAILY 08/17/22 [History Confirmed 08/17/22] digestive enzymes 1 tab PO DAILY 08/17/22 [History Confirmed 08/17/22] diphenoxylate-atropine 2.5 mg-0.025 mg tablet (Lomotil) 1 tab PO TID 08/17/22 [History Confirmed 08/17/22] esomeprazole magnesium 40 mg capsule,delayed release (Nexium) 40 mg PO DAILY 08/17/22 [History Confirmed 08/17/22] gabapentin 100 mg capsule 100 mg PO TID 08/17/22 [History Confirmed 08/17/22] glutamine 500 mg capsule 500 mg PO QID PRN Pain (Scale Score 1-3) 08/17/22 [History Confirmed 08/17/22] levothyroxine 125 mcg tablet (Synthroid) 125 mcg PO DAILY 08/17/22 [History Confirmed 08/17/22] loratadine 10 mg disintegrating tablet (Allergy Relief (loratadine)) 10 mg PO DAILY PRN Allergy Symptoms 08/17/22 [History Confirmed 08/17/22] metoprolol succinate 50 mg tablet,extended release 24 hr 50 mg PO BID 08/17/22 [History Confirmed 08/17/22] omeprazole 40 mg capsule,delayed release 40 mg PO DAILY 08/17/22 [History Confirmed 08/17/22] ishscbstxgwf-ioatsblojlcpr-ejaqruz 6.25 mg-5 mg-10 mg/5 mL oral syrup (Promethazine VC-Codeine) 5 ml PO Q4-6H PRN Pain (Scale Score 1-3) 08/17/22 [History Confirmed 08/17/22] rosuvastatin 20 mg tablet (Crestor) 20 mg PO DAILY 08/17/22 [History] rosuvastatin 40 mg tablet 40 mg PO DAILY 08/17/22 [History Confirmed 08/17/22] tramadol 50 mg tablet 50 mg PO BID PRN Pain (Scale Score 1-3) 08/17/22 [History Confirmed 08/17/22] Visit Medications (administered) Generic Name Dose Route Start Last Admin Trade Name Anastasia PRN Reason Stop Dose Admin Acetaminophen 650 mg 08/17/22 15:48 08/18/22 06:07 Acetaminophen 325 Mg Tablet PO 650 mg Q6H PRN Administration Fever/Mild Pain (1-3) Aspirin 81 mg 08/18/22 09:00 08/18/22 08:58 Aspirin Ec 81 Mg Tablet PO 81 mg DAILY LESLY Administration Chlorthalidone 25 mg 08/18/22 09:00 08/18/22 08:58 Chlorthalidone 25 Mg Tablet PO 25 mg DAILY LESLY Administration Enoxaparin Sodium 40 mg 08/18/22 09:00 08/18/22 08:58 Enoxaparin 40 Mg/0.4 Ml Syringe SUBCUT 40 mg DAILY LESLY Administration Furosemide 40 mg 08/18/22 09:00 08/18/22 08:58 Furosemide 40 Mg/4 Ml Vial IV 40 mg DAILY LESLY Administration Gabapentin 100 mg 08/17/22 21:00 08/18/22 08:58 Gabapentin 100 Mg Capsule PO 100 mg TID LESLY Administration DILTIAZEM 125 mg in 125 mls @ 5 mls/hr 08/17/22 16:00 08/18/22 11:03 Diltiazem 125 Mg/125 Ml-D5w IV 5 mg/hr TITRATE LESLY 5 mls/hr Titration Protocol 5 MG/HR Levothyroxine Sodium 125 mcg 08/18/22 06:00 08/18/22 06:07 Levothyroxine 125 Mcg Tablet PO 125 mcg DAILY@0600 LESLY Administration Melatonin 6 mg 08/17/22 15:43 08/17/22 23:59 Melatonin 3 Mg Tablet PO 6 mg BEDTIME PRN Administration Insomnia Metoprolol Succinate 100 mg 08/18/22 09:00 08/18/22 08:58 Metoprolol Er 50 Mg Tablet PO 100 mg BID LESLY Administration Pantoprazole Sodium 40 mg 08/18/22 07:00 08/18/22 06:[address] 40 Mg Tablet PO 40 mg 0700 LESLY Administration Tramadol HCl 100 mg 08/17/22 17:53 08/17/22 23:59 Tramadol 50 Mg Tablet PO 100 mg DAILY PRN Administration Pain, Moderate (4-6) Objective Labs Result Diagrams: 08/18/22 06:29 08/18/22 06:29 Labs: Laboratory Results - last 24 hr 08/17/22 08/17/22 08/17/22 13:00 13:00 13:00 WBC 13.8 H RBC 5.54 Hgb 16.2 Hct 47.1 MCV 85.0 MCH 29.2 MCHC 34.3 RDW 15.7 H Plt Count 305 Neut % (Auto) 69.6 Lymph % (Auto) 12.4 L [place] % (Auto) 12.7 Eos % (Auto) 4.9 H Baso % (Auto) 0.4 Neut # (Auto) 9600 H Lymph # (Auto) 1700 [place] # (Auto) 1800 H Eos # (Auto) 700 H Baso # (Auto) 100 Sodium 139 Potassium 4.8 Chloride 104 Carbon Dioxide 28 BUN 16 Creatinine 1.05 Estimated GFR > 60 BUN/Creatinine Ratio 15.2 Glucose 47 L Hemoglobin A1c Lactate Calcium 9.5 Magnesium 2.1 Total Bilirubin 0.4 AST 27 ALT 39 Alkaline Phosphatase 87 Total Creatine Kinase 50 L CK-MB (CK-2) TNP CK-MB (CK-2) Rel Index TNP Troponin I < 0.012 NT-Pro-B Natriuret Pep 948 H Total Protein 7.4 Albumin 3.9 Globulin 3.5 Albumin/Globulin Ratio 1.1 Triglycerides Cholesterol LDL Cholesterol, Calc HDL Cholesterol Lipase 179 TSH Urine Color Urine Appearance Urine pH Ur Specific [place] Urine Protein Urine Glucose (UA) Urine Ketones Urine Occult Blood Urine Nitrate Urine Bilirubin Urine Urobilinogen Ur Leukocyte Esterase Urine RBC Urine WBC Urine Bacteria Ur Culture Indicated? Micro UA Comment SARS-CoV-2 (PCR) 08/17/22 08/17/22 08/17/22 13:00 13:00 13:18 WBC RBC Hgb Hct MCV MCH MCHC RDW Plt Count Neut % (Auto) Lymph % (Auto) [place] % (Auto) Eos % (Auto) Baso % (Auto) Neut # (Auto) Lymph # (Auto) [place] # (Auto) Eos # (Auto) Baso # (Auto) Sodium Potassium Chloride Carbon Dioxide BUN Creatinine Estimated GFR BUN/Creatinine Ratio Glucose Hemoglobin A1c Lactate 1.2 Calcium Magnesium Total Bilirubin AST ALT Alkaline Phosphatase Total Creatine Kinase CK-MB (CK-2) CK-MB (CK-2) Rel Index Troponin I NT-Pro-B Natriuret Pep Total Protein Albumin Globulin Albumin/Globulin Ratio Triglycerides Cholesterol LDL Cholesterol, Calc HDL Cholesterol Lipase TSH Urine Color Yellow Urine Appearance Clear Urine pH 7.5 Ur Specific [place] 1.010 Urine Protein Negative Urine Glucose (UA) Negative Urine Ketones Negative Urine Occult Blood Negative Urine Nitrate Negative Urine Bilirubin Negative Urine Urobilinogen 0.2 Ur Leukocyte Esterase Negative Urine RBC None seen Urine WBC None seen Urine Bacteria None seen Ur Culture Indicated? Cult not indicated Micro UA Comment Microscopic normal SARS-CoV-2 (PCR) Negative 08/17/22 08/17/22 08/17/22 18:00 18:00 18:00 WBC RBC Hgb Hct MCV MCH MCHC RDW Plt Count Neut % (Auto) Lymph % (Auto) [place] % (Auto) Eos % (Auto) Baso % (Auto) Neut # (Auto) Lymph # (Auto) [place] # (Auto) Eos # (Auto) Baso # (Auto) Sodium Potassium Chloride Carbon Dioxide BUN Creatinine Estimated GFR BUN/Creatinine Ratio Glucose Hemoglobin A1c 5.8 Lactate Calcium Magnesium Total Bilirubin AST ALT Alkaline Phosphatase Total Creatine Kinase CK-MB (CK-2) CK-MB (CK-2) Rel Index Troponin I NT-Pro-B Natriuret Pep Total Protein Albumin Globulin Albumin/Globulin Ratio Triglycerides 108 Cholesterol 146 LDL Cholesterol, Calc 91 HDL Cholesterol 33 L Lipase TSH 1.11 Urine Color Urine Appearance Urine pH Ur Specific [place] Urine Protein Urine Glucose (UA) Urine Ketones Urine Occult Blood Urine Nitrate Urine Bilirubin Urine Urobilinogen Ur Leukocyte Esterase Urine RBC Urine WBC Urine Bacteria Ur Culture Indicated? Micro UA Comment SARS-CoV-2 (PCR) 08/17/22 08/18/22 08/18/22 18:39 06:29 06:29 WBC 12.2 H RBC 5.42 Hgb 15.2 Hct 46.1 MCV 85.1 MCH 28.1 MCHC 33.0 RDW 16.0 H Plt Count 278 Neut % (Auto) 72.1 Lymph % (Auto) 11.6 L [place] % (Auto) 10.3 Eos % (Auto) 5.5 H Baso % (Auto) 0.5 Neut # (Auto) 8800 H Lymph # (Auto) 1400 [place] # (Auto) 1300 H Eos # (Auto) 700 H Baso # (Auto) 100 Sodium 136 L Potassium 4.7 Chloride 101 Carbon Dioxide 28 BUN 18 Creatinine 0.90 Estimated GFR > 60 BUN/Creatinine Ratio 20.0 Glucose 113 H Hemoglobin A1c Lactate Calcium 9.0 Magnesium Total Bilirubin AST ALT Alkaline Phosphatase Total Creatine Kinase CK-MB (CK-2) CK-MB (CK-2) Rel Index Troponin I < 0.012 NT-Pro-B Natriuret Pep Total Protein Albumin Globulin Albumin/Globulin Ratio Triglycerides Cholesterol LDL Cholesterol, Calc HDL Cholesterol Lipase TSH Urine Color Urine Appearance Urine pH Ur Specific [place] Urine Protein Urine Glucose (UA) Urine Ketones Urine Occult Blood Urine Nitrate Urine Bilirubin Urine Urobilinogen Ur Leukocyte Esterase Urine RBC Urine WBC Urine Bacteria Ur Culture Indicated? Micro UA Comment SARS-CoV-2 (PCR) 08/18/22 06:29 WBC RBC Hgb Hct MCV MCH MCHC RDW Plt Count Neut % (Auto) Lymph % (Auto) [place] % (Auto) Eos % (Auto) Baso % (Auto) Neut # (Auto) Lymph # (Auto) [place] # (Auto) Eos # (Auto) Baso # (Auto) Sodium Potassium Chloride Carbon Dioxide BUN Creatinine Estimated GFR BUN/Creatinine Ratio Glucose Hemoglobin A1c Lactate Calcium Magnesium Total Bilirubin AST ALT Alkaline Phosphatase Total Creatine Kinase CK-MB (CK-2) CK-MB (CK-2) Rel Index Troponin I < 0.012 NT-Pro-B Natriuret Pep Total Protein Albumin Globulin Albumin/Globulin Ratio Triglycerides Cholesterol LDL Cholesterol, Calc HDL Cholesterol Lipase TSH Urine Color Urine Appearance Urine pH Ur Specific [place] Urine Protein Urine Glucose (UA) Urine Ketones Urine Occult Blood Urine Nitrate Urine Bilirubin Urine Urobilinogen Ur Leukocyte Esterase Urine RBC Urine WBC Urine Bacteria Ur Culture Indicated? Micro UA Comment SARS-CoV-2 (PCR) Exam Vital Signs (past 8 hours): - 08/18/22 05:00 08/18/22 05:00 08/18/22 05:30 Temperature Pulse Rate 92 H 94 H Respiratory Rate 20 20 Blood Pressure 124/92 H Pulse Oximetry 93 92 Oxygen Delivery Method Oxygen Flow Rate 08/18/22 05:30 08/18/22 06:00 08/18/22 06:00 Temperature Pulse Rate 97 H Respiratory Rate 23 Blood Pressure 126/83 132/92 H Pulse Oximetry 94 Oxygen Delivery Method Oxygen Flow Rate 08/18/22 07:00 08/18/22 08:23 08/18/22 09:28 Temperature 97.9 F Pulse Rate 106 H 99 H 105 H Respiratory Rate 19 24 Blood Pressure 121/93 H 121/94 H Pulse Oximetry 96 96 Oxygen Delivery Method Oxygen Flow Rate 3 08/18/22 10:00 08/18/22 11:03 Temperature 98.0 F Pulse Rate 95 H Respiratory Rate 21 Blood Pressure 121/79 Pulse Oximetry 94 Oxygen Delivery Method Nasal Cannula Oxygen Flow Rate 3 Fraction of Inspired Oxygen 21 SaO2/FiO2 Ratio 447 Oxygen Delivery Method Nasal Cannula Oxygen Flow Rate 3 Assessment & Plan Assessment & Plan narrative: patient seen with bedside nurse chart/labs/imaging reivewed 51 yaer old male with acute hypoxic rep failure afib with rvr atelectatis currently afebrile, HD stable remains on cardizem, hr 140s Plan -neurocheck seizure precautions -avoid opiods/benzos -on room air, can use hfnc/bipap prn -echo reviewed, ef 65% -cardizem drip wean as toleated -started on metoprolol 100mg bid, monitor bp -monitor ins/outs -replace lytes prn -gi/dvt ppx -home meds, synthroid, statin -please call eICU prn if condition changes -d/w Dr. Cabrera Total ccm time 45 mins . Time Spent With Patient Critical Care time: I spent a total of [] minutes of critical care time on this patient's care today; this time is exclusive of procedural time.
--- NOTE | 2022-08-18 15:11 | CM.DANOTE ---
Initial Discharge Assessment Note: Case reviewed, met with patient. Introduced self and role. 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 He is legally blind. His proxy is his mother Philomena who is his legal guardian he states and he lives with her. He is independent in self care with some assistance needed at times. He does cook at home. Plan: Return home to care of his mother when medically stable. SERGEY Discharge Planning/Care Management CM Discharge Assessment Start: 08/18/22 15:00 Freq: Status: Active Protocol: Document 08/18/22 15:01 (Rec: 08/18/22 15:08 [id number]) Discharge Planning Assessment Assigned Packaging Line Operator Mary Hayes RN/DCP Advance Directives? No History Provided By Patient,Medical Record Prior Living Arrangements House Household Members family Comment Lives with Mother Type of transporation used prior to Relies on Others admit Independent with ADL's No Is patient alert and oriented? Yes Needs Assistance With Bathing,Meal Prep,Managing Medications,Home Chores / Shopping Caregiver for Another No DME Already Rented / Owned Bath Bench,FWW / Walker,Cane Discharge Plan Home Referrals Initiated None needed Review Status In Process Next Review Type Continued Stay Review
[2022-08-18] MEDS: DILTIAZEM 125 MG/125 ML PIGGYBACK IV (15:48)
[2022-08-18] MEDS: guaiFENesin Solution 100 MG/5 ML UDC 200 MG PO ×2 (15:52→19:54)
[2022-08-18] MEDS: TRAMADOL 50 MG TABLET 100 MG PO (19:53)
[2022-08-18] MEDS: MELATONIN 3 MG TABLET 6 MG PO (19:54)
--- NOTE | 2022-08-18 21:11 | PM.ICURNDS ---
- Date Patient Seen: 08/18/22 Time Patient Seen: 09:05 :: This patient was seen via real time interactive two-way audiovisual telecommunication. Note: 51 y.o. male w/ atrial fibrillation; RN reports that she is about to stop the diltiazem 5 mg/hr infusion. Patient is on oral metoprolol. Hemodynamically stable requiring minimal nasal cannula O2. Continue present plan.
[2022-08-19] VITALS (34 sets, daily range): BP systolic 98–150; BP diastolic 58–98; PULSE 65–113; RESP 16–30; TEMP 36.5–36.8; O2SAT 91–97
[2022-08-19] MEDS: guaiFENesin Solution 100 MG/5 ML UDC 200 MG PO (06:09)
[2022-08-19] MEDS: PANTOPRAZOLE DR 40 MG TABLET PO (06:09)
[2022-08-19] MEDS: LEVOTHYROXINE 125 MCG TABLET PO (06:09)
[2022-08-19] MEDS: ACETAMINOPHEN 325 MG TABLET 650 MG PO ×2 (06:10→19:48)
[2022-08-19 07:01] LABS: Add Manual Diff / Slide Review NO; Basophils Absolute Auto 0 /uL (0-100); Basophils Percent Auto 0.4 % (0-2); Eosinophils Absolute Auto 700 /uL (0-450); Eosinophils Percent Auto 5.8 % (2-4); Hematocrit 46.3 % (41-53); Hemoglobin 15.6 g/dL (13.5-17.5); Lymphocytes Absolute Auto 1800 /uL (1100-4500); Mean Corpuscular HGB Conc 33.7 % (30-36); Mean Corpuscular Hemoglobin 28.6 PG (26-34); Mean Corpuscular Volume 84.6 fL (80-100); Monocytes Absolute Auto 1200 /uL (0-900); Monocytes Percent Auto 9.5 % (3-14); Neutrophils Absolute Auto 8400 /uL (1500-7000); Neutrophils Percent Auto 69.3 % (50-75); Platelet Count 300 X10^3/uL (150-400); Red Blood Cell Count 5.47 X10^6/uL (4.5-5.9); Red Cell Distribution Width 16.3 % (11.6-14.8); White Blood Cell Count 12.1 X10^3/uL (4.5-11.0)
[2022-08-19 07:12] LABS: Blood Urea Nitrogen 21 mg/dL (9-20); Calcium 8.7 mg/dL (8.4-10.2); Carbon Dioxide 28 mmol/L (22-32); Chloride 98 mmol/L (98-107); Estimated Glomerular Filt Rate > 60 mL/min (>60); Glucose 143 mg/dL (70-100); HEMOLYSIS < 15 (0-50); Potassium 3.7 mmol/L (3.4-5.1); Sodium 135 mmol/L (137-145)
--- NOTE | 2022-08-19 07:53 | PM.PN.1 ---
Subjective Subjective Date Patient Seen: 08/19/22 Time Patient Seen: 13:00 Interval history: Still feels congested but overall feeling better today. Now off O2. HR still 90-110's and increases with movement. Exam Vital Signs (past 8 hours): - 08/19/22 00:00 08/19/22 00:00 08/19/22 00:00 Temperature 97.7 F Pulse Rate Respiratory Rate Blood Pressure 131/86 Pulse Oximetry Oxygen Delivery Method CPAP 08/19/22 00:00 08/19/22 01:00 08/19/22 01:01 Temperature Pulse Rate 102 H 103 H 102 H Respiratory Rate 22 24 23 Blood Pressure Pulse Oximetry 93 94 Oxygen Delivery Method 08/19/22 01:01 08/19/22 02:00 08/19/22 02:00 Temperature Pulse Rate 91 H Respiratory Rate 18 Blood Pressure 120/80 122/71 Pulse Oximetry 91 Oxygen Delivery Method 08/19/22 03:00 08/19/22 03:00 08/19/22 04:00 Temperature Pulse Rate 95 H 99 H Respiratory Rate 16 17 Blood Pressure 121/68 109/58 L Pulse Oximetry 94 92 Oxygen Delivery Method 08/19/22 04:00 08/19/22 04:01 08/19/22 04:01 Temperature Pulse Rate 99 H 98 H Respiratory Rate 17 16 Blood Pressure 109/58 L Pulse Oximetry 92 93 Oxygen Delivery Method 08/19/22 04:00 08/19/22 05:00 08/19/22 05:00 Temperature Pulse Rate 104 H Respiratory Rate 18 Blood Pressure 108/78 Pulse Oximetry 93 Oxygen Delivery Method CPAP 08/19/22 06:00 08/19/22 06:00 08/19/22 06:00 Temperature Pulse Rate 87 Respiratory Rate 18 Blood Pressure 98/76 Pulse Oximetry 92 Oxygen Delivery Method Room Air 08/19/22 07:00 08/19/22 07:00 Temperature Pulse Rate 86 Respiratory Rate 27 H Blood Pressure 110/78 Pulse Oximetry 92 Oxygen Delivery Method Fraction of Inspired Oxygen 21 SaO2/FiO2 Ratio 447 Oxygen Delivery Method Room Air Oxygen Flow Rate 3 Narrative Exam Narrative: GEN: diaphoretic, obese, on room air HEENT: PERRL NECK: trachea midline, no JVD CV: tachycardic, irregularly irregular, no murmurs PULM: clear bilaterally ABD: soft, nontender, nondistended, no organomegaly SKIN: rash present on abdomen EXT: warm and well perfused, 1+ edema of LE's NEURO: awake, alert, oriented, no focal deficits Objective Labs Result Diagrams: 08/19/22 06:35 08/19/22 06:35 Labs: Laboratory Results - last 24 hr 08/19/22 08/19/22 06:35 06:35 WBC 12.1 H RBC 5.47 Hgb 15.6 Hct 46.3 MCV 84.6 MCH 28.6 MCHC 33.7 RDW 16.3 H Plt Count 300 Neut % (Auto) 69.3 Lymph % (Auto) 15.0 L [place] % (Auto) 9.5 Eos % (Auto) 5.8 H Baso % (Auto) 0.4 Neut # (Auto) 8400 H Lymph # (Auto) 1800 [place] # (Auto) 1200 H Eos # (Auto) 700 H Baso # (Auto) 0 Sodium 135 L Potassium 3.7 Chloride 98 Carbon Dioxide 28 BUN 21 H Creatinine 1.00 Estimated GFR > 60 BUN/Creatinine Ratio 21.0 Glucose 143 H Calcium 8.7 PFSH Social History household members: family Assessment & Plan Assessment & Plan narrative: # acute hypoxic respiratory failure secondary to viral URI vs HFpEF exacerbation, resolved -patient very short of breath in ED requiring BiPAP to maintain sats, now weaned to 3L NC. Patient noted increased cough of greenish sputum past week. -etiology not completely clear however AFib RVR may be contributing, or patient may have recieved excess IV fluids while recently hospitalized at [facility] and discharged 5 days ago -BNP 948 -CTA chest showed right lower lobe atelectasis and R elevated hemidiaphragm but no PE, infiltrates or pericardial effusion. per previous CXR's the right hemidiaphragm is chronic -echo with EF 65-70%, no focal WMA's or valvular disease, RVSP 25 -continue IV lasix 40 daily -weaned to room air -appreciate tele ICU recs -added robitussin PRN for cough # new onset atrial fibrillation with RVR -heart rate up to 130s in ED -off dilt drip -continue home metoprolol XL at increased dose of 100mg BID and add 120mg po dilt -[id number] score of 1 therefore no anticoagulation needed, continue home aspirin -consider amiodarone drip for chemical conversion if still tachycardic # recent pericardial cyst removal -patient had large pericardial cyst removed via davinci robot by Dr. Moraes CT surgeon at [facility] on 08/08 -echo showed no evidence of cyst # hypertension, chronic -continue home # HLD, chronic -continue statin # hypothyroidism, chronic -continue home synthroid -TSH 1.11 # morbid obesity -BMI 40 # legally blind Code status is full code. COVID negative. DVT prophylaxis with heparin subQ. Proxy is mother Philomena. I have reviewed home meds and used all available resources to reconcile the home meds. This patient will be admitted as inpatient and will require greater than 2 midnights of hospital time to treat atrial fibrillation with RVR and hypoxic respiratory failure. Time Spent With Patient Critical Care time: I spent a total of [] minutes of critical care time on this patient's care today; this time is exclusive of procedural time.
[2022-08-19] MEDS: CHLORTHALIDONE 25 MG TABLET PO (08:39)
[2022-08-19] MEDS: ASPIRIN EC 81 MG TABLET PO (08:39)
[2022-08-19] MEDS: METOPROLOL ER 50 MG TABLET 100 MG PO ×2 (08:39→21:06)
[2022-08-19] MEDS: GABAPENTIN 100 MG CAPSULE PO ×3 (08:39→21:05)
[2022-08-19] MEDS: FUROSEMIDE 40 MG/4 ML VIAL IV (08:41)
[2022-08-19] MEDS: ENOXAPARIN 40 MG/0.4 ML SYRINGE SUBCUT (08:44)
[2022-08-19] MEDS: dilTIAZem CD 120 MG CAP PO (09:52)
--- NOTE | 2022-08-19 11:17 | P.TELICUPN_ITS ---
Subjective Subjective IF CAMERA ACTIVATED, patient seen via real-time interactive audiovisual communication: Camera activated Consent obtained for tele-nitroglycerin nitrator operator batch care: Yes Patient Location: ICU Provider location (State): [place] Other participants/roles: Dr. Cabrera Current Medications Current Medications Medications: Home Medications Saccharomyces boulardii 250 mg capsule 250 mg PO TID 08/17/22 [History Confirmed 08/17/22] aspirin 81 mg capsule 81 mg PO DAILY 08/17/22 [History Confirmed 08/17/22] calcium citrate 200 mg (950 mg) tablet 200 mg PO DAILY 08/17/22 [History Confirmed 08/17/22] digestive enzymes 1 tab PO DAILY 08/17/22 [History Confirmed 08/17/22] diphenoxylate-atropine 2.5 mg-0.025 mg tablet (Lomotil) 1 tab PO TID 08/17/22 [History Confirmed 08/17/22] esomeprazole magnesium 40 mg capsule,delayed release (Nexium) 40 mg PO DAILY 08/17/22 [History Confirmed 08/17/22] gabapentin 100 mg capsule 100 mg PO TID 08/17/22 [History Confirmed 08/17/22] glutamine 500 mg capsule 500 mg PO QID PRN Pain (Scale Score 1-3) 08/17/22 [History Confirmed 08/17/22] levothyroxine 125 mcg tablet (Synthroid) 125 mcg PO DAILY 08/17/22 [History Confirmed 08/17/22] loratadine 10 mg disintegrating tablet (Allergy Relief (loratadine)) 10 mg PO DAILY PRN Allergy Symptoms 08/17/22 [History Confirmed 08/17/22] metoprolol succinate 50 mg tablet,extended release 24 hr 50 mg PO BID 08/17/22 [History Confirmed 08/17/22] omeprazole 40 mg capsule,delayed release 40 mg PO DAILY 08/17/22 [History Confirmed 08/17/22] fxfqrqkhqavo-yablfizmsuonx-ydwtgtx 6.25 mg-5 mg-10 mg/5 mL oral syrup (Promethazine VC-Codeine) 5 ml PO Q4-6H PRN Pain (Scale Score 1-3) 08/17/22 [History Confirmed 08/17/22] rosuvastatin 40 mg tablet 40 mg PO DAILY 08/17/22 [History Confirmed 08/17/22] tramadol 50 mg tablet 50 mg PO BID PRN Pain (Scale Score 1-3) 08/17/22 [History Confirmed 08/17/22] Visit Medications (administered) Generic Name Dose Route Start Last Admin Trade Name Anastasia PRN Reason Stop Dose Admin Acetaminophen 650 mg 08/17/22 15:48 08/19/22 06:10 Acetaminophen 325 Mg Tablet PO 650 mg Q6H PRN Administration Fever/Mild Pain (1-3) Aspirin 81 mg 08/18/22 09:00 08/19/22 08:39 Aspirin Ec 81 Mg Tablet PO 81 mg DAILY LESLY Administration Chlorthalidone 25 mg 08/18/22 09:00 08/19/22 08:39 Chlorthalidone 25 Mg Tablet PO 25 mg DAILY LESLY Administration Diltiazem HCl 120 mg 08/19/22 10:00 08/19/22 09:52 Diltiazem Cd 120 Mg Cap PO 120 mg DAILY LESLY Administration Enoxaparin Sodium 40 mg 08/18/22 09:00 08/19/22 08:44 Enoxaparin 40 Mg/0.4 Ml Syringe SUBCUT 40 mg DAILY LESLY Administration Furosemide 40 mg 08/18/22 09:00 08/19/22 08:41 Furosemide 40 Mg/4 Ml Vial IV 40 mg DAILY LESLY Administration Gabapentin 100 mg 08/17/22 21:00 08/19/22 08:39 Gabapentin 100 Mg Capsule PO 100 mg TID LESLY Administration Guaifenesin 200 mg 08/18/22 09:32 08/19/22 06:09 Guaifenesin Solution 100 Mg/5 Ml Udc PO 200 mg Q4HR PRN Administration Cough DILTIAZEM 125 mg in 125 mls @ 5 mls/hr 08/17/22 16:00 08/19/22 07:46 Diltiazem 125 Mg/125 Ml-D5w IV 0 mg/hr TITRATE LESLY 0 mls/hr Titration Protocol 5 MG/HR Levothyroxine Sodium 125 mcg 08/18/22 06:00 08/19/22 06:09 Levothyroxine 125 Mcg Tablet PO 125 mcg DAILY@0600 LESLY Administration Melatonin 6 mg 08/17/22 15:43 08/18/22 19:54 Melatonin 3 Mg Tablet PO 6 mg BEDTIME PRN Administration Insomnia Metoprolol Succinate 100 mg 08/19/22 07:53 08/19/22 08:39 Metoprolol Er 50 Mg Tablet PO 100 mg BID LESLY Administration Pantoprazole Sodium 40 mg 08/18/22 07:00 08/19/22 06:[address] 40 Mg Tablet PO 40 mg 0700 LESLY Administration Tramadol HCl 100 mg 08/17/22 17:53 08/18/22 19:53 Tramadol 50 Mg Tablet PO 100 mg DAILY PRN Administration Pain, Moderate (4-6) Objective Labs Result Diagrams: 08/19/22 06:35 08/19/22 06:35 Labs: Laboratory Results - last 24 hr 08/19/22 08/19/22 06:35 06:35 WBC 12.1 H RBC 5.47 Hgb 15.6 Hct 46.3 MCV 84.6 MCH 28.6 MCHC 33.7 RDW 16.3 H Plt Count 300 Neut % (Auto) 69.3 Lymph % (Auto) 15.0 L [place] % (Auto) 9.5 Eos % (Auto) 5.8 H Baso % (Auto) 0.4 Neut # (Auto) 8400 H Lymph # (Auto) 1800 [place] # (Auto) 1200 H Eos # (Auto) 700 H Baso # (Auto) 0 Sodium 135 L Potassium 3.7 Chloride 98 Carbon Dioxide 28 BUN 21 H Creatinine 1.00 Estimated GFR > 60 BUN/Creatinine Ratio 21.0 Glucose 143 H Calcium 8.7 Exam Vital Signs (past 8 hours): - 08/19/22 04:00 08/19/22 04:00 08/19/22 04:01 Temperature Pulse Rate 99 H 99 H 98 H Respiratory Rate 17 17 16 Blood Pressure 109/58 L Pulse Oximetry 92 92 93 Oxygen Delivery Method Oxygen Flow Rate 08/19/22 04:01 08/19/22 04:00 08/19/22 05:00 Temperature Pulse Rate Respiratory Rate Blood Pressure 109/58 L 108/78 Pulse Oximetry Oxygen Delivery Method CPAP Oxygen Flow Rate 08/19/22 05:00 08/19/22 06:00 08/19/22 06:00 Temperature Pulse Rate 104 H 87 Respiratory Rate 18 18 Blood Pressure 98/76 Pulse Oximetry 93 92 Oxygen Delivery Method Oxygen Flow Rate 08/19/22 06:00 08/19/22 07:00 08/19/22 07:00 Temperature Pulse Rate 86 Respiratory Rate 27 H Blood Pressure 110/78 Pulse Oximetry 92 Oxygen Delivery Method Room Air Oxygen Flow Rate 08/19/22 07:52 08/19/22 08:00 08/19/22 08:03 Temperature 98.3 F Pulse Rate 92 H 91 H Respiratory Rate 20 20 Blood Pressure Pulse Oximetry 92 92 Oxygen Delivery Method Room Air Oxygen Flow Rate 0 08/19/22 08:03 08/19/22 08:39 08/19/22 08:39 Temperature Pulse Rate 96 H 96 H Respiratory Rate 26 H Blood Pressure 124/80 130/86 Pulse Oximetry 96 Oxygen Delivery Method Oxygen Flow Rate 08/19/22 08:39 08/19/22 09:00 08/19/22 09:00 Temperature Pulse Rate 101 H Respiratory Rate 24 Blood Pressure 130/86 127/85 Pulse Oximetry 96 Oxygen Delivery Method Oxygen Flow Rate 08/19/22 09:13 08/19/22 10:00 08/19/22 10:00 Temperature Pulse Rate 106 H 111 H Respiratory Rate 29 H Blood Pressure 127/85 143/88 H Pulse Oximetry 96 Oxygen Delivery Method Oxygen Flow Rate Fraction of Inspired Oxygen 21 SaO2/FiO2 Ratio 447 Oxygen Delivery Method Room Air Oxygen Flow Rate 0 Assessment & Plan Assessment & Plan narrative: patient seen with bedside nurse chart/labs/imaging reivewed 51 yaer old male with acute hypoxic rep failure afib with rvr atelectatis currently afebrile, HD stable off cardizem drip HR 110s, 130s on exertions Plan -neurocheck seizure precautions -avoid opiods/benzos -echo reviewed, ef 65% --continue metoprolol 100mg bid -start 120mg daily po -monitor ins/outs -replace lytes prn -gi/dvt ppx -home meds, synthroid, statin -please call eICU prn if condition changes -d/w Dr. Cabrera Total ccm time 45 mins .m Time Spent With Patient Critical Care time: I spent a total of [] minutes of critical care time on this patient's care today; this time is exclusive of procedural time.
[2022-08-19] MEDS: TRAMADOL 50 MG TABLET 100 MG PO (21:07)
[2022-08-20] VITALS (17 sets, daily range): BP systolic 116–130; BP diastolic 77–86; PULSE 92–103; RESP 16–24; TEMP 36.2–36.4; O2SAT 93–95
[2022-08-20 05:40] LABS: Add Manual Diff / Slide Review NO; Basophils Absolute Auto 100 /uL (0-100); Basophils Percent Auto 0.6 % (0-2); Eosinophils Absolute Auto 500 /uL (0-450); Eosinophils Percent Auto 5.3 % (2-4); Hematocrit 47.4 % (41-53); Lymphocytes Absolute Auto 1900 /uL (1100-4500); Lymphocytes Percent Auto 18.5 % (25-40); Mean Corpuscular HGB Conc 33.7 % (30-36); Mean Corpuscular Hemoglobin 28.5 PG (26-34); Mean Corpuscular Volume 84.6 fL (80-100); Monocytes Absolute Auto 1200 /uL (0-900); Monocytes Percent Auto 11.5 % (3-14); Neutrophils Absolute Auto 6700 /uL (1500-7000); Neutrophils Percent Auto 64.1 % (50-75); Platelet Count 308 X10^3/uL (150-400); White Blood Cell Count 10.4 X10^3/uL (4.5-11.0)
[2022-08-20 05:52] LABS: BUN Creatinine Ratio 18.9 (6-22); Blood Urea Nitrogen 20 mg/dL (9-20); Calcium 9.1 mg/dL (8.4-10.2); Carbon Dioxide 30 mmol/L (22-32); Chloride 98 mmol/L (98-107); Estimated Glomerular Filt Rate > 60 mL/min (>60); Glucose 101 mg/dL (70-100); HEMOLYSIS < 15 (0-50); Potassium 3.8 mmol/L (3.4-5.1); Sodium 136 mmol/L (137-145)
[2022-08-20] MEDS: PANTOPRAZOLE DR 40 MG TABLET PO (06:20)
[2022-08-20] MEDS: LEVOTHYROXINE 125 MCG TABLET PO (06:20)
[2022-08-20] MEDS: ACETAMINOPHEN 325 MG TABLET 650 MG PO (08:04)
[2022-08-20] MEDS: FUROSEMIDE 40 MG/4 ML VIAL IV (08:04)
[2022-08-20] MEDS: CHLORTHALIDONE 25 MG TABLET PO (08:04)
[2022-08-20] MEDS: ENOXAPARIN 40 MG/0.4 ML SYRINGE SUBCUT (08:04)
[2022-08-20] MEDS: guaiFENesin Solution 100 MG/5 ML UDC 200 MG PO (08:04)
[2022-08-20] MEDS: GABAPENTIN 100 MG CAPSULE PO ×2 (08:05→14:08)
[2022-08-20] MEDS: METOPROLOL ER 50 MG TABLET 100 MG PO (08:05)
[2022-08-20] MEDS: ASPIRIN EC 81 MG TABLET PO (08:05)
[2022-08-20] MEDS: dilTIAZem CD 120 MG CAP PO ×2 (09:48→10:48)
[2022-08-20] MEDS: DIGOXIN 500 MCG/2 ML AMPUL 250 MCG IV (14:08)
--- NOTE | 2022-08-20 18:43 | PM.DS.1 ---
History of Present Illness History of Present Illness Date Patient Seen: 08/17/22 Time Patient Seen: 18:50 Chief complaint: SOB, new afib, s/p pericardial cyst removal 08/12 Narrative: Per admitting provider: Jose Rodriguez is a 51 yo M with PMH of recent large pericardial cyst removal on 08/08 at [facility], legal blindness, DAKOTAH on CPAP, HTN, HLD, morbid obesity, hypothyroidism and GERD who presents with dyspnea, orthopnea and found to be in A-fib RVR. Patient states ever since he was discharged from [facility] on 08/12 he has had exertional shortness of breath, fatigue and chest tightness. He states he also had a pain in his right shoulder which would keep him up at night. Hugging his small dog would also exacerbate the chest pain. He also had trouble lying flat and notes increased swelling of LE's for which he wears compression stockings. Patient then came to the ED where he was in mild respiratory distress so BiPAP was placed with good effect. Patient states he is breathing much easier now with it. Patient received push of IV Dilt for his AFib. Was transferred to the ICU for further management and placed on dilt drip. Discharge Providers Provider Date of admission: 08/17/22 15:32 Discharge Date: 08/20/22 Primary care physician: Yohannes Nair MD Consults: 08/17/22 15:51 Consult to Tele-feed inspection supervisor Routine Comment: Consulting Provider: Damien [employer] Reason for consultation: [employer] services Discharge provider: Kenny Sherman MD Summary Hospital Course Discharge Diagnosis: 1. New onset atrial fibrillation with RVR 2. Acute hypoxic respiratory failure, secondary to possible afib with RVR and volume overload 3. Recent pericardial cyst removal 4. Hypertension 5. Hyperlipidemia 6. Legal blindness 7. Hypothyroidism 8. Morbid obesity, BMI 40 Hospital Course: Mr. Rodriguez was admitted with shortness of breath and tachycardia with palpitations. He had previously had pericardial cyst removal at [facility] approximately a week prior to presentation. ECHO was done which showed no pericardial effusion and no recurrence of cyst with preserved EF. He had negative troponins and negative COVID. His imaging was possibly consistent with bronchitis. He was in afib with RVR on arrival with elevated BNP. This was likely secondary to fluid retention from his new afib. His CHADSVASC2 score was 1, and he was already on aspirin, and further anticoagulation was not indicated. His heart rate eventually improved with increasing his rate control medications and he was discharged newly on a higher dose of metoprolol and started on diltiazem. He was recommended to follow up with his PCP and cold roll catcher within one week. Exam Vital Signs (past 8 hours): - 08/20/22 11:00 08/20/22 12:00 08/20/22 13:00 Temperature Pulse Rate 102 H 95 H 103 H Respiratory Rate 20 18 24 Blood Pressure Pulse Oximetry 93 94 94 08/20/22 13:12 08/20/22 14:00 08/20/22 14:09 Temperature 97.2 F L Pulse Rate 98 H 101 H Respiratory Rate 21 24 Blood Pressure 118/81 Pulse Oximetry 94 94 Fraction of Inspired Oxygen 21 SaO2/FiO2 Ratio 447 Oxygen Delivery Method Room Air Oxygen Flow Rate 0 Narrative Exam Narrative: GEN: no acute distress CV: irregularly irregular, no murmurs PULM: clear bilaterally Objective Labs Result Diagrams: 08/20/22 05:30 08/20/22 05:30 Labs: Laboratory Results - last 24 hr 08/20/22 08/20/22 05:30 05:30 WBC 10.4 RBC 5.60 Hgb 16.0 Hct 47.4 MCV 84.6 MCH 28.5 MCHC 33.7 RDW 16.0 H Plt Count 308 Neut % (Auto) 64.1 Lymph % (Auto) 18.5 L [place] % (Auto) 11.5 Eos % (Auto) 5.3 H Baso % (Auto) 0.6 Neut # (Auto) 6700 Lymph # (Auto) 1900 [place] # (Auto) 1200 H Eos # (Auto) 500 H Baso # (Auto) 100 Sodium 136 L Potassium 3.8 Chloride 98 Carbon Dioxide 30 BUN 20 Creatinine 1.06 Estimated GFR > 60 BUN/Creatinine Ratio 18.9 Glucose 101 H Calcium 9.1 [facility] Medical History (Updated 08/20/22 @ 07:27 by Yolis Lynch RN) Blindness, legal Chest tightness Chronic GERD Exertional shortness of breath Hyperlipidemia Hypertension Hypothyroidism Morbid obesity Obstructive sleep apnea on CPAP Pericardial cyst Social History household members: family Discharge Plan Discharge Plan Patient Disposition: Home Provider Discharge Comment: Mr. Rodriguez came in with shortness of breath after a drainage of a pericardial cyst. He was found to be in atrial fibrillation with rapid heart rate and this improved with starting medications. He was started on blood pressure medication as well and should follow up with his PCP and cold roll catcher as soon as possible. Discharge orders & Medications Prescriptions: New metoprolol succinate 50 mg Tablet Extended Release 24 Hr 100 mg PO BID Qty: 60 0RF chlorthalidone 25 mg Tablet 25 mg PO DAILY Qty: 30 0RF diltiazem HCl 120 mg Capsule,Extended Release 24hr 240 mg PO DAILY Qty: 30 0RF Continued digestive enzymes Tablet 1 tab PO DAILY loratadine [Allergy Relief (loratadine)] 10 mg Tablet,Disintegrating 10 mg PO DAILY PRN (Reason: Allergy Symptoms) diphenoxylate-atropine [Lomotil] 2.5-0.025 mg Tablet 1 tab PO TID glutamine 500 mg Capsule 500 mg PO QID PRN (Reason: Pain (Scale Score 1-3)) omeprazole 40 mg capsule,delayed release(DR/EC) 40 mg PO DAILY tramadol 50 mg Tablet 50 mg PO BID PRN (Reason: Pain (Scale Score 1-3)) [id number] [Promethazine VC-Codeine] 6.25-5-10 mg/5 mL Syrup 5 ml PO Q4-6H PRN (Reason: Pain (Scale Score 1-3)) esomeprazole magnesium [Nexium] 40 mg Capsule,Delayed Release(Dr/Ec) 40 mg PO DAILY levothyroxine [Synthroid] 125 mcg Tablet 125 mcg PO DAILY calcium citrate 200 mg (950 mg) Tablet 200 mg PO DAILY rosuvastatin 40 mg tablet 40 mg PO DAILY Saccharomyces boulardii 250 mg Capsule 250 mg PO TID aspirin 81 mg Capsule 81 mg PO DAILY gabapentin 100 mg capsule 100 mg PO TID Discontinued metoprolol succinate 50 mg Tablet Extended Release 24 Hr 50 mg PO BID Follow up/Referrals: [facility] Cardiology [Provider Group] - 1 Week (recent pericardial cyst drainage, then admitted for atrial fibrillation with fast heart rate) Yohannes Nair MD [Primary Care Provider] - 1 Week (follow up within one week) Visit Report/Discharge Packet Instructions: Atrial Fibrillation Discharge Data Primary Care Provider: Yohannes Nair
== END 2022-08-20 16:42 | disposition home or self-care (01) | DRG 291 ==
LOC: ED 15:17 → AC 15:33 → ICU 16:02
PROVIDERS: Internal Medicine Critical Care Medicine; Admitting Provider Student in an Organized Health Care Education/Training Program; Emergency Provider Emergency Medicine; PCP Family Medicine; Referring Provider Emergency Medicine; Visit Provider Student in an Organized Health Care Education/Training Program
DX: I11.0 Hypertensive heart disease with heart failure (principal); I50.31 Acute diastolic (congestive) heart failure; J96.01 Acute respiratory failure with hypoxia; J98.11 Atelectasis; J06.9 Acute upper respiratory infection, unspecified; I48.91 Unspecified atrial fibrillation; E78.5 Hyperlipidemia, unspecified; E03.9 Hypothyroidism, unspecified; H54.8 Legal blindness, as defined in USA; K21.9 Gastro-esophageal reflux disease without esophagitis; G47.33 Obstructive sleep apnea (adult) (pediatric); Z98.890 Other specified postprocedural states; Z20.822 Contact with and (suspected) exposure to COVID-19
CPT/HCPCS: 36415; 71045; 71275; 74174; 80048; 80053; 80061; 81001; 82550; 82962; 83036; 83605; 83690; 83735; 83880; 84443; 84484; 85025; 87635; 93005; 93306; 94660; 96374; 96375; 99232; 99285; 99291; C9803; J1160; J1650; J1940; Q9967